=== PATIENT | female | born 1960 | race Caucasian/White ===

== ENCOUNTER → 2017-01-27 | Outpatient (REF) | payer OTHER ==
[~2017-01-27] MED LIST: ASACOL; NECON; THERGRAN; VITA500T; [UNRECOGNIZED DRUG - OTHER]
[2017-01-27 13:51] LABS: AMYLASE 58 U/L (25-115)
== END ==
LOC: M LAB REF 12:35
PROVIDERS: ATTEND Internal Medicine
DX: Z51.81 Encounter for therapeutic drug level monitoring (principal)

== ENCOUNTER → 2017-10-04 | Outpatient (REF) | payer OTHER | LOC: M LAB REF 15:13 | PROVIDERS: ATTEND Physician Assistant | DX: R30.0 Dysuria (principal) ==

== ENCOUNTER → 2018-02-09 | Outpatient (REF) | payer OTHER ==
[2018-02-09 13:04] LABS: VITAMIN B12 LEVEL 438 PG/ML
== END ==
LOC: M LAB REF 11:54
DX: R71.8 Other abnormality of red blood cells (principal)

== ENCOUNTER → 2018-09-18 | Outpatient (REF) | payer OTHER | LOC: M LAB REF 17:43 | DX: C50.912 Malignant neoplasm of unspecified site of left female breast (principal); D48.61 Neoplasm of uncertain behavior of right breast | CPT/HCPCS: 88305 ==

== ENCOUNTER → 2018-10-01 | Outpatient (CLI) | payer OTHER ==
[2018-10-01 12:27] LABS: BASO % 0.5 % (0.0-1.0); EOS # 0.1 10^3/uL (0.0-0.50); EOS % 1.7 % (0.0-3.0); HEMOGLOBIN 13.6 g/dl (12.0-15.5); IMMATURE GRANULOCYTE % 0.2 % (0-3.0); LYMPH # 0.9 10^3/uL (1.5-4.5); LYMPH % 21.4 % (24.0-44.0); MEAN CORPUSCULAR HEMOGLOBIN 32.1 pg (27.0-33.0); MEAN CORPUSCULAR VOLUME 94.3 fl (80.0-96.0); MONO # 0.3 10^3/uL (0.0-0.8); MONO % 7.9 % (0.0-5.0); NEUTROPHILS # 2.8 10^3/uL (1.8-7.7); NEUTROPHILS % 68.3 % (36.0-66.0); PLATELET COUNT, AUTOMATED 184 10^3/uL (150-450); RED BLOOD COUNT 4.24 10^6/uL (4.00-5.40); RED CELL DISTRIBUTION WIDTH 13.2 % (11.5-14.5); WHITE BLOOD COUNT 4.1 10^3/uL (4.0-10.0)
[2018-10-01 12:39] LABS: ALBUMIN 3.8 GM/DL (3.2-5.2); ALBUMIN/GLOBULIN RATIO 1.27 (1.00-1.93); ALKALINE PHOSPHATASE 90 U/L (45-117); ALT/SGPT 16 U/L (12-78); ANION GAP 7 MEQ/L (8-16); AST/SGOT 11 U/L (7-37); BILIRUBIN,TOTAL 0.4 MG/DL (0.2-1.0); BLOOD UREA NITROGEN 15 MG/DL (7-18); CALCIUM LEVEL 8.5 MG/DL (8.5-10.1); CARBON DIOXIDE LEVEL 28 MEQ/L (21-32); CHLORIDE LEVEL 107 MEQ/L (98-107); CREATININE FOR GFR 0.85 MG/DL (0.55-1.30); GLOMERULAR FILTRATION RATE > 60.0 (>51); GLUCOSE, FASTING 86 MG/DL (70-100); POTASSIUM SERUM 4.1 MEQ/L (3.5-5.1); SODIUM LEVEL 142 MEQ/L (136-145); TOTAL PROTEIN 6.8 GM/DL (6.4-8.2)
== END ==
LOC: M WUC 09:41
DX: Z01.818 Encounter for other preprocedural examination (principal); C50.912 Malignant neoplasm of unspecified site of left female breast
CPT/HCPCS: 80053

== ENCOUNTER → 2018-10-22 | Outpatient (CLI) | payer MEDICAID ==
[~2018-10-22] MED LIST changes: +DECA4TAB PO; +MESA800T PO; +NEXI1CAP4 PO; +ONDA4SOL PO; +XANA0.25 PO
--- NOTE | 2018-10-22 11:51 | REP ---
CHEST X-RAY: Two views. HISTORY: Preop exam. COMPARISON STUDY: December 23, 2008. FINDINGS: The lungs are well inflated and clear. The pleural angles are sharp. Heart size is normal. Pulmonary vasculature is not increased. No bony abnormalities seen. IMPRESSION: Negative chest x-ray. Electronically Signed by Abelardo Vera MD 10/22/2018 05:02 P
== END ==
LOC: M SMT 10:58
PROVIDERS: ATTEND Thoracic Surgery (Cardiothoracic Vascular Surgery)
DX: Z01.818 Encounter for other preprocedural examination (principal)

== ENCOUNTER → 2018-11-05 | Outpatient (CLI) | payer MEDICAID ==
[~2018-11-05] MED LIST changes: +CLAR10CA3 PO
--- NOTE | 2018-11-05 09:05 | REP ---
Chest two views HISTORY: There is carcinoma Comparison: 10/22/2018 The lungs are clear. The heart is normal in size. The pulmonary vasculature is normal in appearance. The bony structure is intact. An Hufiiv-E-Oyzq catheter is present. IMPRESSION: No acute disease. Electronically Signed by Papa Boss MD 11/05/2018 08:57 A
== END ==
LOC: M SMT 08:33
PROVIDERS: ATTEND Thoracic Surgery (Cardiothoracic Vascular Surgery)
DX: Z01.818 Encounter for other preprocedural examination (principal); C50.912 Malignant neoplasm of unspecified site of left female breast

== ENCOUNTER 2018-12-27 12:42 | Emergency (ER) | payer MEDICAID ==
[~2018-12-27] VITALS: Ht 162.6 cm; Wt 80.5 kg
[~2018-12-27 12:42] MED LIST changes: +LIDO2.5C15 TOP
[2018-12-27] MEDS ORDERED: ASAC800T3 (12:49)
[2018-12-27] MEDS ORDERED: ASPIRIN 81 MG CHEW TABLET PO ONE (14:30)
[2018-12-27] MEDS ORDERED: IPRATROPIUM 0.5MG/ALBUTEROL 2.5MG INH SOL UD 3ML (DUONEB)(J7620) NEB ONE (14:30)
[2018-12-27 14:32] LABS: HEMATOCRIT 33.5 % (36.0-47.0); HEMOGLOBIN 10.7 g/dl (12.0-15.5); MEAN CORPUSCULAR HEMOGLOBIN 31.2 pg (27.0-33.0); MEAN CORPUSCULAR HGB CONC 31.9 g/dl (32.0-36.5); MEAN CORPUSCULAR VOLUME 97.7 fl (80.0-96.0); PLATELET COUNT, AUTOMATED 143 10^3/uL (150-450); RED BLOOD COUNT 3.43 10^6/uL (4.00-5.40); VENOUS BASE EXCESS -1.8 (-2.0-2.0); VENOUS PARTIAL PRESSURE CO2 38.9 mmHg (38.0-50.0); VENOUS PARTIAL PRESSURE O2 55.9 mmHg (30.0-50.0); VENOUS PH 7.389 UNITS (7.330-7.430); VENOUS STANDARD HCO3 22.8 MEQ/L; VENOUS TOTAL CO2 24.2 MEQ/L (24.0-28.0); WHITE BLOOD COUNT 17.3 10^3/uL (4.0-10.0)
[2018-12-27 14:43] LABS: BLOOD UREA NITROGEN 12 MG/DL (7-18); CALCIUM LEVEL 7.9 MG/DL (8.5-10.1); CARBON DIOXIDE LEVEL 26 MEQ/L (21-32); CHLORIDE LEVEL 106 MEQ/L (98-107); CK-MB VALUE MASS < 1.0 NG/ML (<3.6); CPK CREATINE PHOSPHOKINASE 58 U/L (26-192); CREATININE FOR GFR 0.79 MG/DL (0.55-1.30); GLOMERULAR FILTRATION RATE > 60.0 (>51); GLUCOSE, FASTING 92 MG/DL (70-100); INR 0.96; MB/CK RELATIVE INDEX 1.72 (< OR =4); POTASSIUM SERUM 3.9 MEQ/L (3.5-5.1); PROTHROMBIN TIME 12.9 SECONDS (12.1-14.4); SODIUM LEVEL 141 MEQ/L (136-145); TROPONIN I < 0.02 NG/ML (< 0.10)
[2018-12-27 14:45] LABS: D-DIMER QUANT 472.07 ng/ml (<500)
--- NOTE | 2018-12-27 14:48 | REP ---
PA and lateral chest: Comparison is 11/05/2018. The lung miller are clear. The cardiac size is normal. The richard, mediastinum, and skeletal structures are unremarkable exit sent for [id number] on the right, unchanged. . Impression: Negative PA and lateral chest. There is no interval change Electronically Signed by Fran Faulkner MD 12/27/2018 02:39 P
[2018-12-27 15:35] LABS: INFLUENZA A AMPLIFICATION NEGATIVE (NEGATIVE); INFLUENZA B AMPLIFICATION NEGATIVE (NEGATIVE)
[2018-12-27 15:45] LABS: ATYPICAL LYMPH 4 % (0-5); BASOPHILS 4 % (0-4); EOSINOPHILS 1 % (0-5); LYMPHOCYTES 7 % (16-52); METAMYELOCYTES 1 % (0-0); MONOCYTES 2 % (0-8); NEUTROPHILS 74 % (35-75)
[2018-12-27] MEDS ORDERED: ISOVUE-370 76% 100ML VIAL (Q9967) As Ordered ONE (15:45)
[2018-12-27 15:46] LABS: ANISOCYTOSIS 1+; OVALOCYTES 1+; PLATELET ESTIMATE NORMAL (NORMAL); POIKILOCYTOSIS 1+; POLYCHROMASIA 1+; TOXIC GRANULATION 1+
--- NOTE | 2018-12-27 16:09 | REP ---
CT of the chest with IV contrast, CT pulmonary angiography: There are no emboli in the pulmonary trunk. There are no emboli in the pulmonary lobe or segment branches. There are no infiltrates. There are no pleural effusions. There are no masses or nodules. There is no mediastinal, hilar or axillary adenopathy. The thoracic aorta is unremarkable. Cardiac size is normal. The visualized upper abdominal contents are unremarkable. Impression: There are no pulmonary emboli. Otherwise, essentially negative CT study of the chest. Electronically Signed by Fran Faulknre MD 12/27/2018 04:00 P
[2018-12-27] MEDS ORDERED: MIDAZOLAM INJ 2 MG/2 ML VIAL (J2250) As Ordered ONE (17:26)
[2018-12-27 17:45] VITALS: BP 125/61
--- NOTE | 2018-12-27 21:11 | ECGEPIP ---
Stationary ECG Study [facility] - ED Test Date: 2018-12-27 Pat Name: BARBARA SPANN Department: Room: - Gender: F Pattern Drafter: precious : 1960 Requested By: NICOLETTE Blackwood PA-C Order Number: [id number] Reading MD: Viviana Logan Measurements Intervals Spring Rate: 89 P: 48 ME: 130 QRS: -8 QRSD: 75 T: 18 QT: 360 QTc: 440 Interpretive Statements SINUS RHYTHM POSSIBLE INFERIOR INFARCT NSTTW ABNORMALITY INCREASED RATE 10/22/18 Electronically Signed On 12-27-2018 21:11:25 EDT by Viviana Logan
== END 2018-12-27 17:52 | disposition home or self-care (01) ==
LOC: M ED 12:42
DX: R07.89 Other chest pain (principal); C50.919 Malignant neoplasm of unspecified site of unspecified female breast; Z88.2 Allergy status to sulfonamides; Z79.899 Other long term (current) drug therapy
CPT/HCPCS: 71046; 71275; 80048; 82550; 82553; 82803; 85025; 85379; 85610; 87502; 93005; 93041; 94640; 99285; Q9967

== ENCOUNTER → 2019-02-18 | Outpatient (CLI) | payer OTHER ==
[~2019-02-18] MED LIST changes: +ASAC800T3; +MERC50TA2 PO; -MESA800T PO; +MESA800T8 PO; +OXYC-517 PO
--- NOTE | 2019-02-20 08:57 | RADONC ---
RADIATION ONCOLOGY CONSULTATION NOTE DATE: 02/18/2019 CHART NUMBER: [id number] DIAGNOSIS: Left breast cancer. STAGE: T2, N0, M0, ER negative, NM negative, HER2 negative. Right breast cancer. STAGE: T1c, N0, M0l, grade 3, ER positive, NM negative, HER2 negative. ECOG PERFORMANCE STATUS: 0. CONSULTATION NOTE: Ms. Diaz is a very pleasant 58-year-old white female with the diagnosis of what appears to be post neoadjuvant chemotherapy stage T2N0M0, ER negative, NM negative, HER2 negative left-sided breast carcinoma involving the left upper outer quadrant as well as a right upper outer quadrant [id number], poorly differentiated invasive ductal carcinoma which was ER positive, NM negative and HER2 negative following neoadjuvant chemotherapy as well. She is now presenting status post her neoadjuvant chemotherapy consisting of doxy, Taxol and Cytoxan completed on 01/06/2019 followed by bilateral lumpectomies and bilateral sentinel node dissections on 01/27/2019 with a complete response in the right breast to chemotherapy with no residual invasive or in situ disease and two sentinel lymph nodes which were negative for malignancy. There was a good response in the left breast with one of the two tumors showing complete response and the second showing a partial response with residual measurement of 8 mm. Lymph nodes appeared to be negative although there was fibrosis and hemosiderin consistent with previously involved lymph nodes and showing treatment effect. No remaining viable cells were positive in the lymph node specimen. The patient is now presenting for discussion of external beam radiation therapy in attempt to increase the likelihood of achieving local regional control. PAST MEDICAL HISTORY: The patient's past medical history is positive for Crohn's disease. She has had a partial thyroidectomy in the past. She has had C-sections and a ovary removal. She has a history of endometriosis and fibroid tumor resection. ALLERGIES: The patient is allergic to SULFA DRUGS. SOCIAL HISTORY: The patient does not smoke cigarettes. She drinks alcohol socially. FAMILY HISTORY: The patient's family history is negative for breast cancer or other issues. REVIEW OF SYSTEMS: The patient's review of systems noncontributory. She denies nausea, vomiting, fevers, chills, night sweats, diplopia, headaches, anxiety or depression, anorexia, weight loss, visual disturbances, chest pain, urinary or bowel difficulties, bone pain, or neurological problems. PHYSICAL EXAMINATION: The patient is a well-developed, well-nourished, female in no acute distress. HEENT exam is normocephalic, atraumatic. Extraocular movements are intact. There is no palpable cervical, supraclavicular, infraclavicular, axillary, or inguinal lymphadenopathy present. Lungs are clear to auscultation and percussion. Heart has a regular rate and rhythm. Abdomen is benign with no hepatosplenomegaly, masses, or tenderness. Breast examination reveals no masses or discharge bilaterally. Skeletal examination reveals no tenderness to pressure or percussion of the bony skeleton. Extremities reveal no clubbing, cyanosis, or edema. Neurologic exam is grossly intact, as is the remainder of the physical examination. ASSESSMENT: I had a very lengthy discussion with this patient and we discussed her therapeutic options. She has presented with bilateral breast carcinomas and indeed had three separate malignancies including what appears to be some involvement of the axillary nodes. The axillary node dissection on the left was noted to show some fibrosis and hemosiderin and was thought to represent a treatment effects from a previously involved lymph node. The patient basically has two reasonable possibilities now and the choices are quite personal. 1. First we can offer the patient and she I believe she is a candidate for postoperative radiation therapy to her right breast as well as the left breast and left lymph node drainage site region. I believe she would do quite well with this and I have discussed in detail the potential benefits as well as possible acute and chronic sequelae of external beam radiation therapy. We discussed logistics of treatment planning, simulation and subsequent fractionated daily radiation treatment. We did discuss alternate fractionation schedules but in light of the fact that we will be treating the lymph node drainage sites on the left I believe it is safer to offer her a traditional fractionation scheme at least on the left breast and supraclavicular, axillary region. The patient's other alternative of course is bilateral mastectomies which she has discussed with Dr. Jean Paul MD. Either option should deliver increase chance of local control in this very pleasant woman. Clearly she would need close followup whichever decision she makes. I did discuss various techniques to make sure we reduce any radiation dose to her heart and did express some concern at the large areas to be treated. This is not extremely unusual that we need to treat both breasts and as mentioned above. She should be able to tolerate this treatment without difficulty. I asked her to think about her options after discussing the pluses and minuses of each. I have not scheduled the patient for simulation at this time and she will contact me with her decision on treatments. We will schedule her at that time if she so desires. ADDENDUM: Approximately an hour following consultation the patient contacted our office and let us know that she has made a decision and that she does wish to undergo radiation at this time. We therefore are scheduling her for simulation and radiation will follow. cc: Ananda Causey Jr, MD Sara McGee, MD Lori Medeiros, MD
== END ==
LOC: M ONCR 12:54
PROVIDERS: ATTEND Radiology Radiation Oncology
DX: C50.912 Malignant neoplasm of unspecified site of left female breast (principal); Z92.21 Personal history of antineoplastic chemotherapy

== ENCOUNTER → 2019-03-19 | Outpatient (RCR) | payer OTHER ==
[2019-02-25 10:54] LABS: HEMATOCRIT 35.9 % (36.0-47.0); HEMOGLOBIN 11.8 g/dl (12.0-15.5); LYMPH % 25.6 % (24.0-44.0); MEAN CORPUSCULAR HEMOGLOBIN 32.7 pg (27.0-33.0); MEAN CORPUSCULAR HGB CONC 32.9 g/dl (32.0-36.5); MEAN CORPUSCULAR VOLUME 99.4 fl (80.0-96.0); NEUTROPHILS % 66.1 % (36.0-66.0); RED BLOOD COUNT 3.61 10^6/uL (4.00-5.40); WHITE BLOOD COUNT 3.1 10^3/uL (4.0-10.0)
--- NOTE | 2019-02-25 16:30 | RADONC ---
RADIATION ONCOLOGY SIMULATION NOTE DATE: 02/25/2019 CHART NUMBER: [id number] SIMULATION NOTE: Ms. Diaz was taken to the CT scan for CT simulation of her bilateral breast field. CT was accomplished without difficulty or discomfort. Radiation treatment planning is underway and radiation treatments will begin subsequently. An immobilization device was created and will be used throughout the course of treatment. It was created without difficulty or discomfort. I was physically present throughout the course of CT simulation.
--- NOTE | 2019-03-17 09:11 | RADONC ---
RADIATION ONCOLOGY PROGRESS NOTE DATE: 03/16/2019 CHART NUMBER: [id number] PROGRESS NOTE : Ms. Diaz underwent port films today of her treatment miller including the right and left breast. Port films were accomplished without difficulty or discomfort. Radiation treatments are scheduled to begin tomorrow.
[~2019-03-19] MED LIST changes: +ANAS1TAB2 PO; +BIMA1SOL OP; +[UNRECOGNIZED DRUG - CODE] TP
== END ==
LOC: M ONCR 02-25 09:49
PROVIDERS: ATTEND Radiology Radiation Oncology
DX: C50.411 Malignant neoplasm of upper-outer quadrant of right female breast (principal); C50.412 Malignant neoplasm of upper-outer quadrant of left female breast

== ENCOUNTER → 2019-04-07 | Outpatient (REF) | payer OTHER ==
[2019-04-07 14:43] LABS: BILIRUBIN,DIRECT < 0.1 MG/DL (0.0-0.2); LIPASE 204 U/L (73-393)
== END ==
LOC: M LAB REF 13:10
PROVIDERS: ATTEND Internal Medicine
DX: Z51.81 Encounter for therapeutic drug level monitoring (principal)

== ENCOUNTER → 2019-04-15 | Outpatient (CLI) | payer OTHER ==
--- NOTE | 2019-04-21 14:24 | DEXA ---
AP SPINE L1 - L4 1.201 0.1 1.1 LT FEMUR TOTAL 1.079 0.6 1.4 LT NECK 1.010 -0.2 1.0 RT FEMUR TOTAL 1.053 0.4 1.2 RT NECK 0.948 -0.6 0.5 TOTAL BODY TOTAL OTHER COMMENTS: Normal bone densitometry of the spine and hips. FOLLOW-UP: Recommendation for the next bone density exam: 5 years. MATT
== END ==
LOC: M WHC 13:03
PROVIDERS: ATTEND Internal Medicine Hematology & Oncology
DX: C50.912 Malignant neoplasm of unspecified site of left female breast (principal); M81.0 Age-related osteoporosis without current pathological fracture

== ENCOUNTER 2019-04-16 09:20 | Outpatient (RCR) | payer OTHER ==
--- NOTE | 2019-03-22 13:37 | RADONC ---
RADIATION ONCOLOGY PROGRESS NOTE DATE: 03/22/2019 CHART #: [id number] Mrs. Diaz with a diagnosis of left breast cancer stage, T2N0M0, ER/HI and HER2/marialuisa negative is currently receiving local regional radiation therapy. She has had four treatments at a dose of 720 cGy of her proposed 4860 cGy. This will be followed by an additional 1200 cGy boost to the lumpectomy scar site. Thus far, treatments have been well tolerated as she denies any untoward side effects. REVIEW OF SYSTEMS: She denies nausea, vomiting, coughing, sputum production or hemoptysis. Her energy level is adequate. She is able to maintain most day-to-day activities without any alteration of her lifestyle. Skin irritation is denied. She has no complaints with regards to any intra-abdominal issues or neurologic problems. EXAMINATION FINDINGS: The skin within the irradiated volume looks normal. There is no erythema and certainly no focal desquamation. Lymphatics: No palpable peripheral lymphadenopathy is appreciated. The remainder of the physical examination is basically unchanged. IMPRESSION: Tolerating radiation reasonably well. PLAN: Treatments to continue.
--- NOTE | 2019-03-29 14:26 | RADONC ---
RADIATION ONCOLOGY DATE: 03/29/2019 CHART NUMBER: [id number] Ms. Diaz is presently at a dose of 1620 cGy to her bilateral breasts and is tolerating treatments quite well at this point with no complaints related to her radiation therapy. She is having no breast or bone pain. REVIEW OF SYSTEMS: The patient's review of systems is noncontributory. She denies nausea, vomiting, fevers, chills, night sweats, diplopia, headaches, anxiety or depression, anorexia, weight loss, visual disturbances, chest pain, urinary or bowel difficulties, bone pain, or neurological problems. PHYSICAL EXAMINATION: The patient's skin is in good condition with no evidence of radiation change present. There is no moist or dry desquamation. The remainder of her physical exam remains unchanged. Ms. Diaz is tolerating treatments quite well and radiation will continue as scheduled.
--- NOTE | 2019-04-06 07:28 | RADONC ---
RADIATION ONCOLOGY PROGRESS NOTE DATE: 04/05/2019 CHART #: [id number] Ms. Diaz is presently at a dose of 2520 cGy to her right and left breasts and is tolerating treatments quite well at this point with no complaints related to her radiation therapy. She is having no breast or bone pain. REVIEW OF SYSTEMS: The patient's review of systems is positive for swallowing discomfort but is otherwise noncontributory. Denies nausea, vomiting, fevers, chills, night sweats, diplopia, headaches, anxiety or depression, anorexia, weight loss, visual disturbances, chest pain, urinary or bowel difficulties, bone pain, or neurological problems. PHYSICAL EXAMINATION: The patient's skin is in good condition with no evidence of radiation change present. There is no moist or dry desquamation. The remainder of her physical exam remains unchanged. Ms. Diaz is tolerating her treatments quite well and radiation will continue as scheduled.
--- NOTE | 2019-04-13 10:42 | RADONC ---
RADIATION ONCOLOGY PROGRESS NOTE DATE OF SERVICE: 04/12/2019 CHART NUMBER [id number]. Mrs. Diaz with a diagnosis of bilateral breast CA is currently receiving local regional radiotherapy and she has achieved a dose to date of 3420 cGy of an anticipated 4860 cGy. Both the right and left breast will be boosted for an additional 12 primary site via an energetic electron beam. Thus far, the patient denies any major issues related to her disease or to her treatments. REVIEW OF SYSTEMS: She specifically denies any nausea, vomiting, coughing, sputum production or hemoptysis. Skin within the irradiated volume. Is itchy but she reports no focal areas of desquamation. Otherwise the patient denies any headaches, neurologic dysfunction. Her energy level is satisfactory and she is able to maintain most day-to-day activities without any alteration of her lifestyle. The remainder of the review of systems is unchanged. EXAMINATION FINDINGS: The skin within the irradiated volume shows a brisk erythematous blush without focal desquamation. No palpable peripheral lymphadenopathy is appreciated. The remainder of the physical examination is unchanged. IMPRESSION: Tolerating therapy well. PLAN: Treatments to continue.
[~2019-04-16 09:20] MED LIST changes: -BUPIVACAINE HCL 0.5% 10 ML VIAL As Ordered ONE; -LIDOCAINE 2% MDV 20 ML VIAL As Ordered ONE
== END 2019-04-18 ==
LOC: M ONCR 09:20
PROVIDERS: ATTEND Radiology Radiation Oncology
DX: C50.411 Malignant neoplasm of upper-outer quadrant of right female breast (principal); C50.412 Malignant neoplasm of upper-outer quadrant of left female breast

== ENCOUNTER → 2019-04-16 | Outpatient (CLI) | payer OTHER ==
[~2019-04-16] MED LIST changes: +BUPIVACAINE HCL 0.5% 10 ML VIAL As Ordered ONE; +LIDOCAINE 2% MDV 20 ML VIAL As Ordered ONE
--- NOTE | 2019-04-28 07:11 | REPIR ---
DATE OF PROCEDURE: 04/16/2019 ATTENDING SURGEON: Dr. Emily Earl EMBEDDED LINUX DEVELOPER: Babita Salvador and Anine Young PREOPERATIVE DIAGNOSIS: Breast cancer. POSTOPERATIVE DIAGNOSIS: Breast cancer. PROCEDURE: Right internal jugular vein tunneled central venous catheter with subcutaneous port removal. INDICATION: Patient is a 58-year-old female who underwent chemotherapy for breast cancer and no longer requires her Port-a-Cath. The patient will undergo removal. ANESTHESIA: Local with 20 mL of 2% lidocaine mixed with 0.5% Marcaine. FLUORO TIME: 0.1 minutes. CONTRAST: None. COMPLICATIONS: None. DRAINS: None. SPECIMENS: None. IMPLANTS: None. PROCEDURE: Patient was taken to the angiography suite, placed supine on the angiography room table and then prepped and draped in the standard surgical fashion. The skin and subcutaneous tissue overlying the port were anesthetized, an incision was made and the port was dissected free and removed. Hemostasis was obtained after which the incision was closed using #4-0 Monocryl in an inverted interrupted fashion. Steri-Strips and dressings were applied. The patient tolerated procedure well. All instrument, sponge, needle counts were correct at the end the case. There were no complications. Dr. Earl was present for and directed the entire case. The patient was transferred to holding area and subsequently discharged in stable condition.
== END ==
LOC: M IRPRO 06:55
PROVIDERS: ATTEND Internal Medicine Hematology & Oncology
DX: Z45.2 Encounter for adjustment and management of vascular access device (principal); C50.912 Malignant neoplasm of unspecified site of left female breast; K21.9 Gastro-esophageal reflux disease without esophagitis; F41.9 Anxiety disorder, unspecified

== ENCOUNTER → 2019-04-27 | Outpatient (REF) | payer OTHER ==
[2019-04-27 12:37] LABS: HEMATOCRIT 39.6 % (36.0-47.0); HEMOGLOBIN 13.5 g/dl (12.0-15.5); MEAN CORPUSCULAR HEMOGLOBIN 32.5 pg (27.0-33.0); MEAN CORPUSCULAR HGB CONC 34.1 g/dl (32.0-36.5); MEAN CORPUSCULAR VOLUME 95.4 fl (80.0-96.0); PLATELET COUNT, AUTOMATED 193 10^3/uL (150-450); RED BLOOD COUNT 4.15 10^6/uL (4.00-5.40); WHITE BLOOD COUNT 3.9 10^3/uL (4.0-10.0)
[2019-04-27 13:50] LABS: ALBUMIN 3.6 GM/DL (3.2-5.2); BILIRUBIN,DIRECT 0.1 MG/DL (0.0-0.2); BILIRUBIN,TOTAL 0.3 MG/DL (0.2-1.0); C REACTIVE PROTEIN QUANTITATIV 0.65 MG/DL (0.00-0.30); TOTAL PROTEIN 6.4 GM/DL (6.4-8.2)
== END ==
LOC: M LABDRAW1 12:07
PROVIDERS: ATTEND Internal Medicine
DX: K50.10 Crohn's disease of large intestine without complications (principal)

== ENCOUNTER 2019-05-04 09:39 | Outpatient (RCR) | payer OTHER ==
--- NOTE | 2019-04-19 12:19 | RADONC ---
RADIATION ONCOLOGY PROGRESS NOTE DATE: 04/19/2019 CHART #: [id number] Ms. Diaz with a diagnosis of bilateral breast carcinoma is currently receiving local regional radiotherapy to both breasts. Her current dose is 4320 cGy of an anticipated 4860 cGy. After the completion of 4860 cGy to both breasts, she will receive an additional 1200 cGy boost with a 16 MEV electron beam. Thus far, she has no specific complaints referable to her disease or to her treatments with the exception of skin redness. REVIEW OF SYSTEMS: She specifically denies any nausea, vomiting, coughing, sputum production or hemoptysis. The skin within the irradiated volume is itching and somewhat dry. She puts emollient on the skin as well as some topical creams. The remainder of the review of systems is unchanged. EXAMINATION FINDINGS: The skin within the irradiated area shows a brisk erythematous blush without focal desquamation. There is no palpable peripheral lymphadenopathy. The remainder of the physical examination is unchanged. IMPRESSION: Tolerating therapy reasonably well. PLAN: Treatments to continue. MTDD
--- NOTE | 2019-04-26 10:55 | RADONC ---
RADIATION ONCOLOGY PROGRESS NOTE: DATE: 04/26/2019 CHART NUMBER: [id number] Ms. Diaz is presently at a dose of 4860 cGy to her bilateral breasts and is tolerating treatments quite well at this point with no significant difficulties related to her radiation therapy. She is having some skin discomfort but no other problems. REVIEW OF SYSTEMS: The patient's review of systems is positive for some skin discomfort but is otherwise noncontributory. She denies nausea, vomiting, fevers, chills, night sweats, diplopia, headaches, anxiety or depression, anorexia, weight loss, visual disturbances, chest pain, urinary or bowel difficulties, bone pain, or neurological problems. PHYSICAL EXAMINATION: The patient's skin in good condition with no evidence of moist or dry desquamation. There is erythema and tanning present. The remainder of her physical exam remains unchanged. Ms. Diaz is tolerating treatments quite well and radiation will continue as scheduled.
--- NOTE | 2019-05-03 14:59 | RADONC ---
RADIATION ONCOLOGY PROGRESS NOTE DATE: 05/03/2019 CHART NUMBER: [id number] Ms. Diaz is presently at a dose of 5860 cGy to her bilateral primary sites and is tolerating treatments quite well at this point with no complaints related to her radiation therapy. She is having no skin pain or other problems. REVIEW OF SYSTEMS: The patient's review of systems is noncontributory. Denies nausea, vomiting, fevers, chills, night sweats, diplopia, headaches, anxiety or depression, anorexia, weight loss, visual disturbances, chest pain, urinary or bowel difficulties, bone pain, or neurological problems. PHYSICAL EXAMINATION The patient's skin is in good condition with no evidence of moist or dry desquamation. The remainder of her physical exam remains unchanged. Ms. Diaz is tolerating her treatments quite well and radiation will continue as scheduled.
--- NOTE | 2019-05-05 08:08 | RADONC ---
RADIATION ONCOLOGY TREATMENT SUMMARY: DATE: 05/04/2019 CHART NUMBER: [id number] DIAGNOSIS: Left breast cancer. STAGE: T2, N0, M0, ER negative, OH negative, HER2/marialuisa negative. DIAGNOSIS: Right breast cancer. STAGE: T1c, N0, M0, grade 3, ER positive, OH positive, HER2/marialuisa negative. ECOG PERFORMANCE STATUS: 0 Ms. Diaz is a very pleasant 58-year-old white female with the diagnosis of what appears to be post neoadjuvant chemotherapy stage T2 abdominal, ER negative, OH negative, HER2/marialuisa negative left-sided breast carcinoma involving the left upper outer quadrant as well as a right upper outer quadrant, T1c, N0, M0 poorly differentiated invasive ductal carcinoma which was ER positive, OH negative and HER2/marialuisa negative. This was also diagnosed following neoadjuvant chemotherapy. The patient presented to us status post her neoadjuvant chemotherapy consisting of doxy, Taxol and Cytoxan followed by bilateral lumpectomies and bilateral sentinel lymph node dissections. She had a complete response in the right breast to chemotherapy with no residual invasive or in situ disease and two sentinel lymph nodes which were negative for malignancy. There was a good response in the left breast with one of the two tumor showing complete response and the second showing partial response with a residual 8 mm lesion. Lymph nodes appear to be negative although there was fibrosis and hemosiderin consistent with previously involved lymph nodes showing treatment effect. No remaining visible cells were positive in the lymph node specimen. We treated the patient to her right breast for a total dose of 4860 cGy delivered in 27 fractions of 180 cGy each over 40 elapsed days from 03/17/2019 through 04/26/2019. The patient's right breast was treated on a linear accelerator utilizing a combination of 6X and 10 X photons utilizing 3D conformal technique with medial lateral tangential miller. Following completion of 4860 cGy to the entire right breast, the primary site was boosted for an additional 1200 cGy delivered in six fractions of 200 cGy each from 04/27/2019 through 05/04/2019. The patient's primary site was treated on a linear accelerator utilizing a 16 mEq electron beam prescribed to the 90% isodose line via en face technique. This brought the primary site to a total dose of 6060 cGy delivered in 33 fractions over 48 elapsed days from 03/17/2019 through 05/04/2019. In addition, we treated the patient's left breast for a dose of 4860 cGy delivered in 27 fractions of 180 cGy each from over 40 elapsed days from 03/17/2019 through 04/26/2019. The patient's left breast was treated on the linear accelerator utilizing a combination of 6X and 10X photons with a 3D conformal technique utilizing medial lateral tangential miller. Following completion of 4860 cGy of the entire left breast the primary site was boosted for an additional 1200 cGy delivered in six fractions of 200 cGy each from 04/27/2019 through 05/04/2019. The primary site boost was treated on a linear accelerator utilizing a 16 MEV electron beam prescribed to the 90% isodose line via an en face technique. This brought the primary site to a total dose of 6060 cGy delivered in 33 fractions over 40 elapsed days from 03/17/2019 through 05/04/2019. In addition, we treated the patient's lymph node drainage sites including the left supraclavicular and axillary regions for a dose of 4860 cGy delivered in 27 fractions of 180 cGy each over 40 elapsed days from 03/17/2019 through 04/26/2019. The patient's lymph node drainage sites were treated on the linear accelerator utilizing a combination of 6X and 15 X photons via 3D conformal technique with anterior oblique field and a PA field. Ms. Diaz tolerated her treatments quite well and was able to complete therapy as prescribed without interruption. The patient is scheduled see me again in 1 month for further followup. She will also continue to be followed by her other physicians as well. Thank you for allowing us to participate in the care of this very pleasant woman. If I could be of any further assistance or provide you with any information, please free to contact me anytime As always warm regards, cc: Ananda Causey Jr, MD Sara McGee, MD Lori Medeiros, MD
[2019-10-11] MEDS ORDERED: ANAS1TAB2 PO (13:01)
[2019-10-12] MEDS ORDERED: ANAS1TAB2 PO (14:22)
== END 2019-05-19 ==
LOC: M ONCR 09:39
PROVIDERS: ATTEND Radiology Radiation Oncology
DX: C50.411 Malignant neoplasm of upper-outer quadrant of right female breast (principal); C50.412 Malignant neoplasm of upper-outer quadrant of left female breast

== ENCOUNTER → 2019-05-26 | Outpatient (REF) | payer OTHER ==
[2019-05-26 13:19] LABS: THYROID STIMULATING HORMONE 1.93 uIU/ML (0.358-3.740); THYROXINE (T4) 8.4 UG/DL (4.5-12.0)
[2019-05-26 13:21] LABS: TOTAL T3 116.7 NG/DL (60.0-181.0)
== END ==
LOC: M LABDRAW1 12:12
PROVIDERS: ATTEND Ophthalmology
DX: Z13.29 Encounter for screening for other suspected endocrine disorder (principal)

== ENCOUNTER → 2019-06-09 | Outpatient (CLI) | payer OTHER ==
--- NOTE | 2019-06-11 15:01 | RADONC ---
RADIATION ONCOLOGY FOLLOWUP NOTE DATE: 06/09/2019 CHART NUMBER: [id number] DIAGNOSIS: Left breast cancer. STAGE: Stage T2, N0, M0, ER negative, AL negative, HER2/marialuisa negative. DIAGNOSIS: Right breast cancer. STAGE: Stage T1c, N0, M0, grade 3, ER positive, AL positive, HER2/marialuisa negative. ECOG PERFORMANCE STATUS: FOLLOWUP NOTE: Ms. Diaz is a very pleasant 58-year-old white female with the diagnosis of bilateral breast cancers who is presenting to us today for routine followup visit 1 month post completion of bilateral radiation therapy. The patient presents today reporting that she is doing quite well with no complaints at this time related to her radiation therapy or disease. She is having no breast or bone pain. The patient's review of systems is noncontributory. Denies nausea, vomiting, fevers, chills, night sweats, diplopia, headaches, anxiety or depression, anorexia, weight loss, visual disturbances, chest pain, urinary or bowel difficulties, bone pain, or neurological problems. PHYSICAL EXAMINATION The patient is a well-developed, well-nourished female in no acute distress. HEENT exam is normocephalic, atraumatic. Extraocular movements are intact. There is no palpable cervical, supraclavicular, infraclavicular, axillary, or inguinal lymphadenopathy present. Lungs are clear to auscultation and percussion. Heart has a regular rate and rhythm. Abdomen is benign with no hepatosplenomegaly, masses, or tenderness. Breast examination reveals no masses or discharge bilaterally. Skeletal examination reveals no tenderness to pressure or percussion of the bony skeleton. Extremities reveal no clubbing, cyanosis, or edema. Neurologic exam is grossly intact, as is the remainder of the physical examination. ASSESSMENT The patient is clinically TAJ at this time. I have scheduled her for a bilateral screening mammography in August and she will be seeing me after that in routine followup visit. In addition, the patient will continue her routine followup visits and management with her medical oncologist, Dr. Barbara Acosta, as well as her surgeon Dr. Soha Reaves. cc: Ananda Causey Jr, MD Sara McGee, MD Lori Medeiros, MD
== END ==
LOC: M ONCR 10:00
PROVIDERS: ATTEND Radiology Radiation Oncology
DX: C50.411 Malignant neoplasm of upper-outer quadrant of right female breast (principal); C50.412 Malignant neoplasm of upper-outer quadrant of left female breast

== ENCOUNTER → 2019-09-01 | Outpatient (CLI) | payer OTHER ==
--- NOTE | 2019-09-09 18:46 | REP ---
BILATERAL MAMMOGRAM WITH 3D tomosynthesis. COMPARISON: Multiple prior exams including most recent 01/19/2019. FAMILY HISTORY: Breast cancer at age 60 at maternal grandmother and breast cancer in sister at age 54. Personal history of bilateral breast cancer with bilateral surgery february 2019 with radiation and chemotherapy. Moderate heterogenous fibroglandular tissue is seen bilaterally. There is post-surgical and post-radiation change bilaterally. Post-surgical architectural distortion is seen in the region of the right axillary tail and also extensively in the lateral aspect of the left breast. There are multiple metallic clips in the posterior upper outer quadrant of the left breast. A metallic clip is seen in the visualized right axilla. The bilateral post surgical architectural distortion is expected, 6 months following bilateral surgery. No focal mass is seen bilaterally. No clustered microcalcifications are seen bilaterally. There is bilateral skin thickening diffusely compatible with post-radiation change. IMPRESSION: ACR 2 benign. Expected post-surgical architectural distortion in the right axillary tail region and in the outer left breast, as well as expected skin thickening from prior radiation therapy bilaterally. No focal mass or clustered microcalcifications. Recommend followup mammogram in one year. BIRADS 2: BI-RADS/ACR category 2 mammogram. Benign Findings. This mammogram was interpreted with the aid of an FDA-approved computer-aided detection system. The patient states she had a clinical breast exam in 06/2019. The patient letter being requested is M1. Electronically Signed by Fran Worley MD 09/10/2019 05:02 P
== END ==
LOC: M RAD 09:10
PROVIDERS: ATTEND Radiology Radiation Oncology
DX: Z12.31 Encounter for screening mammogram for malignant neoplasm of breast (principal); Z80.3 Family history of malignant neoplasm of breast; Z85.3 Personal history of malignant neoplasm of breast; Z92.21 Personal history of antineoplastic chemotherapy; Z92.3 Personal history of irradiation

== ENCOUNTER → 2019-09-29 | Outpatient (CLI) | payer OTHER ==
--- NOTE | 2019-09-29 12:28 | RADONC ---
RADIATION ONCOLOGY FOLLOWUP NOTE DATE: 09/29/2019 CHART #: [id number] DIAGNOSIS: Left breast cancer. STAGE: II, T2, N0, M0, ER negative, NE negative, HER2/marialuisa negative. DIAGNOSIS: Right breast cancer. STAGE: I A, T1c, N0, M0, grade 3, ER positive, NE positive, HER2/marialuisa negative. ECOG PERFORMANCE STATUS: 0. FOLLOWUP NOTE: Ms. Diaz is a very pleasant 58-year-old white female with the diagnosis of bilateral breast cancers who is presenting to us today for routine followup visit 5 months post completion of external beam radiation therapy. The patient presents today reporting that she is doing quite well with no complaints at this time related to her radiation therapy or disease. She has no breast or bone pain. REVIEW OF SYSTEMS: The patient's review of systems is noncontributory. Denies nausea, vomiting, fevers, chills, night sweats, diplopia, headaches, anxiety or depression, anorexia, weight loss, visual disturbances, chest pain, urinary or bowel difficulties, bone pain, or neurological problems. PHYSICAL EXAMINATION: The patient is a well-developed, well-nourished female in no acute distress. HEENT exam is normocephalic, atraumatic. Extraocular movements are intact. There is no palpable cervical, supraclavicular, infraclavicular, axillary, or inguinal lymphadenopathy present. Lungs are clear to auscultation and percussion. Heart has a regular rate and rhythm. Abdomen is benign with no hepatosplenomegaly, masses, or tenderness. Breast examination reveals no masses or discharge bilaterally. Skeletal examination reveals no tenderness to pressure or percussion of the bony skeleton. Extremities reveal no clubbing, cyanosis, or edema. Neurologic exam is grossly intact, as is the remainder of the physical examination. ASSESSMENT: The patient is clinically TAJ at this time. She is being followed and managed closely by Dr. Braga of medical oncology and undergoing hormonal treatments there. In addition, she is being seen by her other physicians and in light of my impending alf I am discharging her from our followup except on a p.r.n. basis. The patient has my cell phone number and office number if I could be of any assistance in the meantime. cc: MD Ananda Mayer Jr, MD Lori Medeiros, MD
== END ==
LOC: M ONCR 09:22
PROVIDERS: ATTEND Radiology Radiation Oncology
DX: Z85.3 Personal history of malignant neoplasm of breast (principal); Z92.3 Personal history of irradiation

== ENCOUNTER → 2019-12-24 | Outpatient (CLI) | payer OTHER ==
--- NOTE | 2019-12-24 13:18 | REPPI ---
CHEST, TWO VIEWS: There is no evidence of acute infiltrate. No pleural effusion is seen. The heart is normal in size. The mediastinal silhouette is unremarkable. The visualized osseous structures are intact. IMPRESSION: No acute pulmonary disease. Electronically Signed by Fran Worley MD 12/28/2019 03:48 P
== END ==
LOC: M PLAIMG 10:55
PROVIDERS: ATTEND Internal Medicine
DX: Z01.818 Encounter for other preprocedural examination (principal)

== ENCOUNTER 2020-01-06 06:13 | Day surgery (SDC) | payer OTHER ==
[~2020-01-06] VITALS: Ht 162.6 cm; Wt 78.0 kg
[2020-01-06] VITALS (9 sets, daily range): BP systolic 133–154; BP diastolic 69–78
[~2020-01-06 06:13] MED LIST changes: +LIDOCAINE 1% MDV 20ML VIAL SQ PRN; +LR 1,000 ML IV ONE; +ceFAZolin SOD 2 GM in IV 1 EA IV ONE
[2020-01-06 06:47] LABS: HEMATOCRIT 38.4 % (36.0-47.0); HEMOGLOBIN 13.2 g/dl (12.0-15.5); MEAN CORPUSCULAR HEMOGLOBIN 35.6 pg (27.0-33.0); MEAN CORPUSCULAR HGB CONC 34.4 g/dl (32.0-36.5); MEAN CORPUSCULAR VOLUME 103.5 fl (80.0-96.0); PLATELET COUNT, AUTOMATED 222 10^3/uL (150-450); RED BLOOD COUNT 3.71 10^6/uL (4.00-5.40); WHITE BLOOD COUNT 3.6 10^3/uL (4.0-10.0)
[2020-01-06] MEDS ORDERED: ROCURONIUM BROMIDE 50 MG/5 ML VIAL As Ordered ONE (07:19)
[2020-01-06] MEDS ORDERED: propofoL 200 MG/20 ML VIAL As Ordered ONE (07:19)
[2020-01-06] MEDS ORDERED: LIDOCAINE 2% INJ 100 MG/5 ML SDV (FOR ANES.) As Ordered ONE (07:19)
[2020-01-06] MEDS ORDERED: fentaNYL 250 MCG/5 ML INJECTION (J3010) As Ordered ONE (07:20)
[2020-01-06] MEDS ORDERED: MIDAZOLAM INJ 2 MG/2 ML VIAL (J2250) As Ordered ONE (07:21)
[2020-01-06] MEDS ORDERED: METOCLOPRAMIDE INJ 10MG/2ML VIAL (J2765) As Ordered ONE (08:14)
[2020-01-06] MEDS ORDERED: ONDANSETRON 4MG/2ML VIAL (J2405) As Ordered ONE ×2 (08:14→12:00)
[2020-01-06] MEDS ORDERED: ACETAMINOPHEN 1000MG 100ML IV BTL (OFIRMEV) (J0131 PER 10MG) As Ordered ONE (08:14)
[2020-01-06] MEDS ORDERED: KETOROLAC 60 MG/2 ML VIAL (J1885) As Ordered ONE (08:14)
[2020-01-06] MEDS ORDERED: dexameTHASONE 4 MG/ML 1ML VIAL (J1100) As Ordered ONE (08:14)
[2020-01-06] MEDS ORDERED: SUGAMMADEX SODIUM 500 MG/5 ML VIAL (BRIDION) As Ordered ONE (09:00)
[2020-01-06] MEDS ORDERED: OMEPRAZOLE 20 MG CAP PO SCH (09:00)
[2020-01-06] MEDS ORDERED: KETOROLAC 30 MG/ML VIAL (J1885) IV PRN (09:22)
[2020-01-06] MEDS ORDERED: MORPHINE 1MG/ML IN 0.9% NACL 100ML IV BAG As Ordered ONE (09:29)
[2020-01-06] MEDS ORDERED: fentaNYL 100 MCG/2 ML INJECTION (J3010) As Ordered ONE (09:29)
[2020-01-06] MEDS ORDERED: IBUPROFEN 600 MG TAB PO PRN (10:00)
[2020-01-06] MEDS ORDERED: diphenhydrAMINE INJ 50MG/ML VIAL (J1200) IV PRN (10:00)
[2020-01-06] MEDS ORDERED: NALOXONE INJ 0.4 MG/1 ML VIAL (J2310) IV PRN (10:00)
[2020-01-06] MEDS ORDERED: NS 1,000 ML IV SCH (10:00)
[2020-01-06] MEDS ORDERED: ONDANSETRON 4MG/2ML VIAL (J2405) IV PRN (10:00)
[2020-01-06] MEDS ORDERED: MORPHINE 2 MG/ML 1ML VIAL (J2270) IV PRN (10:00)
[2020-01-06] MEDS ORDERED: EPIDURAL/PCA KEYS XX PRN (10:00)
[2020-01-06] MEDS ORDERED: fentaNYL 100 MCG/2 ML INJECTION (J3010) IV PRN (10:00)
[2020-01-06] MEDS ORDERED: oxyCODONE 5MG TAB PO PRN (10:00)
[2020-01-06] MEDS ORDERED: LR 1,000 ML IV SCH (10:00)
[2020-01-06] MEDS ORDERED: MORPHINE 1MG/ML IN 0.9% NACL 100ML IV BAG IV PRN (10:00)
[2020-01-06] MEDS ORDERED: NALBUPHINE HCL 10 MG/ML AMP (J2300) IV PRN (10:00)
--- NOTE | 2020-01-06 11:37 | RO ---
DATE OF PROCEDURE: 01/06/2020 PREOPERATIVE DIAGNOSIS/INDICATION FOR SURGERY: Two previous primary breast cancers with increased endometrial and ovarian cancer risk. POSTOPERATIVE DIAGNOSIS: Two previous primary breast cancers with increased endometrial and ovarian cancer risk. PROCEDURE: RSO with biopsy of a right sided peritoneal lesion, which had a benign appearance but in this patient we went ahead and biopsied and took it out by way of biopsy and sent it as well separately. SURGEON: Yeimi Eaton MD CUE WORKER: None. ANESTHESIA: General endotracheal anesthesia (GETA). BRIEF DESCRIPTION OF PROCEDURE AND FINDINGS: Adriane was brought to the operating room where sufficient general endotracheal anesthesia was induced. She was prepped, draped and positioned in the usual sterile fashion. With a weighted speculum placed, the uterine manipulator placed, and Holliday with the ability to backfill placed, and attention was then turned to the abdomen where a transverse semilunar incision was made overlying her previous scarring from her previous surgeries. Sharp and blunt dissection were continued through the subcutaneous tissue to the level of the rectus fascia which was transversely incised, secured with sterile Vicryl retention suture and then the peritoneum was entered under direct visualization. The Graciela cannula was placed and secured in place with the #0 Vicryl retention sutures. CO2 insufflation was then begun. After adequate CO2 insufflation, the peritoneal surfaces were visualized. There were normal shiny peritoneal surfaces throughout initially with no excrescence, ascites or exudate initially noted. There were a cluster of three very tiny, you can see in the pictures, less than the size of the grasper, vesicular lesions on the bowel. These looked like scar tissue. The patient has had previous tubal, , but we went ahead and grabbed them with the grasper. We noted that they were on long stalks and it was fairly easy to take then off without any damage to the bowel and those were removed and sent for pathology. They were very tiny, but with her history peritoneal lesion of any question we did not want to ignore. I did not see anything else nor did I see anything in the pelvis, so it is not at all clear to me that this anything other than surgical scar tissue, but better safe than sorry. We then placed her in Trendelenburg, were able to see that the left tube and ovary had been essentially completely excised. There was a little sort of stump of tube at the ostia which went out with the excision, and the midportion of the right tube was also absent. The patient had previous tubal ligation, in fact there is green permanent suture still visible in the proximal aspect of the stump, but we went ahead and elevated the uterus and with the use of the uterine manipulator in Trendelenburg and manipulation of the bowel, we were able to access the infundibulopelvic ligament on that side and the distal tube and ovary, which were normal in appearance did not have any similar lesions to the little cluster that had already been excised. So we went ahead and used the #45 articulating ENSEAL dissector to carefully cauterize the infundibulopelvic ligament. We were careful to stay well away from the ovary and get a little bit more of that ligament, a little bit more of the round ligament than we usually do, so as to make sure we excised all that tissue. We carefully dissected through the infundibulopelvic and then the scar tissue of the pedicle and the round, and then worked our way back towards the uterus so that all of that tissue would go. With the dissection we backfilled the bladder as needed and there is definitely scar tissue of the bladder to the uterus from her previous sections, well I assume from her previous sections, but this is very much consistent with what was expected. After we freed the broad ligament superiorly on both sided and worked our way down to the uterines, we then used the cold scissors to dissect through some of that scar tissue to make the dissection easier from below. Following this, we went to the work vaginally. The instruments were removed from the abdomen, except of course the trocar, just the instruments, and attention was then turned to the vaginal portion of the case. Working vaginally, the uterine manipulator was removed. Anterior and posterior aspect of the cervix were grasped with single tooth tenaculum and a curved Emanuel was placed anteriorly and a weighted speculum placed. Then, a circumferential incision was made around the base of the cervix and the cardinal ligaments were isolated, clamped, transected and ligated using the Jolly clamps, which were used throughout this portion of the case, and #0 Vicryl suture was used throughout this portion of the case. We then clamped, transected and ligated the uterosacrals, marking them for later reattachment, and of course, opening the posterior peritoneal flap in order to allow placement of the long Jose F weighted retractor. We then carefully dissected anteriorly. She needed more sharp dissection than usual, but there was a clear line of demarcation with the scar tissue and we were able to then carefully clamp, transect and ligate the uterine vasculature until the uterus with the attached right ovary and tube could be delivered and each pedicle was carefully evaluated. Sponge and a stick was used to get better view and to move the bowel out of the way. We then closed the cuff using angle stitches and of course incorporating the uterosacrals, etc. A running locked stitch of #0 Vicryl was used for the final closure of the cuff itself and there was good hemostasis and approximation achieved. Attention was then turned back to the abdomen where the Graciela was removed. The #0 Vicryl sutures were used to close the fascial wound at the umbilicus and a #3-0 Vicryl subcuticular stitch was used to close the skin layer with good approximation and hemostasis again achieved at both layers and a dry sterile dressing was then applied. ESTIMATED BLOOD LOSS FOR PROCEDURE: About 50 mL. FLUID REPLACEMENT: Crystalloid. COMPLICATIONS: None. CONDITION AND DISPOSITION: Adriane tolerated the procedure well and was recovering in the recovery room in good condition.
[2020-01-06] MEDS: LR 1,000 ML IV SCH (18:33)
[2020-01-07 02:00] VITALS: BP 140/69
[2020-01-07] MEDS: LR 1,000 ML IV SCH (04:00)
[2020-01-07 06:00] VITALS: BP 136/70
[2020-01-07] MEDS ORDERED: NORCO, ANEXSIA 5/325MG TABLET (HYDROcodone/ACETAMINOPHEN) PO PRN (06:00)
[2020-01-07] MEDS ORDERED: NORC1TAB7 PO (08:12)
[2020-01-07] MEDS ORDERED: IBUP200C33 PO (08:12)
== END 2020-01-07 08:58 | disposition home or self-care (01) ==
LOC: M SDC 06:13 → M MS5PR 13:00 → M SDC 01-07 08:58
PROVIDERS: ATTEND Obstetrics & Gynecology
DX: N80.0 Endometriosis of uterus (principal); D25.9 Leiomyoma of uterus, unspecified; Z85.3 Personal history of malignant neoplasm of breast; Z92.21 Personal history of antineoplastic chemotherapy; Z92.3 Personal history of irradiation; K50.90 Crohn's disease, unspecified, without complications; Z79.899 Other long term (current) drug therapy; Z88.2 Allergy status to sulfonamides
CPT/HCPCS: 36415; 58571; 85027; 86850; 86900; 86901; 88305; 88307; J0131; J0690; J1100; J1885; J2250; J2405; J2765; J3010

== ENCOUNTER → 2020-02-22 | Outpatient (REF) | payer OTHER ==
[~2020-02-22] MED LIST changes: +IBUP200C33 PO; -LIDOCAINE 1% MDV 20ML VIAL SQ PRN; -LR 1,000 ML IV ONE; +NORC1TAB7 PO; -ceFAZolin SOD 2 GM in IV 1 EA IV ONE
== END ==
LOC: M LAB REF 16:10
PROVIDERS: ATTEND Registered Nurse
DX: N39.0 Urinary tract infection, site not specified (principal)

== ENCOUNTER → 2020-03-09 | Outpatient (REF) | payer OTHER ==
[~2020-03-09] MED LIST changes: +MULTTAB24 PO
[2020-03-09 15:04] LABS: BASO % 0.7 % (0.0-1.0); EOS % 1.3 % (0.0-3.0); HEMATOCRIT 36.4 % (36.0-47.0); HEMOGLOBIN 12.2 g/dl (12.0-15.5); LYMPH # 0.5 10^3/uL (1.5-5.0); LYMPH % 16.7 % (24.0-44.0); MEAN CORPUSCULAR HEMOGLOBIN 34.5 pg (27.0-33.0); MEAN CORPUSCULAR HGB CONC 33.5 g/dl (32.0-36.5); MEAN CORPUSCULAR VOLUME 102.8 fl (80.0-96.0); MONO # 0.2 10^3/uL (0.0-0.8); NEUTROPHILS # 2.3 10^3/uL (1.5-8.5); PLATELET COUNT, AUTOMATED 203 10^3/uL (150-450); RED BLOOD COUNT 3.54 10^6/uL (4.00-5.40)
== END ==
LOC: M PLALAB 14:31
PROVIDERS: ATTEND Internal Medicine Hematology & Oncology
DX: C50.919 Malignant neoplasm of unspecified site of unspecified female breast (principal)

== ENCOUNTER → 2020-05-24 | Outpatient (REF) | payer OTHER ==
[~2020-05-24] MED LIST changes: +VENL37.598 PO
[2020-06-22 22:41] LABS: BASO % 0.5 % (0.0-1.0); HEMATOCRIT 38.2 % (36.0-47.0); HEMOGLOBIN 12.9 g/dl (12.0-15.5); LYMPH # 0.5 10^3/uL (1.5-5.0); MEAN CORPUSCULAR HGB CONC 33.8 g/dl (32.0-36.5); MEAN CORPUSCULAR VOLUME 100.8 fl (80.0-96.0); MONO # 0.4 10^3/uL (0.0-0.8); NEUTROPHILS % 77.2 % (36.0-66.0); PLATELET COUNT, AUTOMATED 192 10^3/uL (150-450); RED BLOOD COUNT 3.79 10^6/uL (4.00-5.40); WHITE BLOOD COUNT 3.9 10^3/uL (4.0-10.0)
[2020-07-08 12:41] LABS: ALBUMIN 3.7 GM/DL (3.2-5.2); BILIRUBIN,DIRECT 0.1 MG/DL (0.0-0.2); BILIRUBIN,TOTAL 0.4 MG/DL (0.2-1.0); TOTAL PROTEIN 6.3 GM/DL (6.4-8.2)
== END ==
LOC: M PLALAB 08:26
PROVIDERS: ATTEND Nurse Practitioner Family
DX: K50.10 Crohn's disease of large intestine without complications (principal)

== ENCOUNTER → 2020-07-25 | Outpatient (REF) | payer OTHER ==
[2020-07-25 17:24] LABS: BASO % 0.4 % (0.0-1.0); EOS # 0.1 10^3/uL (0.0-0.5); EOS % 1.3 % (0.0-3.0); HEMATOCRIT 39.8 % (36.0-47.0); HEMOGLOBIN 13.2 g/dl (12.0-15.5); LYMPH # 0.5 10^3/uL (1.5-5.0); LYMPH % 11.6 % (24.0-44.0); MEAN CORPUSCULAR HEMOGLOBIN 33.7 pg (27.0-33.0); MEAN CORPUSCULAR HGB CONC 33.2 g/dl (32.0-36.5); MEAN CORPUSCULAR VOLUME 101.5 fl (80.0-96.0); MONO # 0.4 10^3/uL (0.0-0.8); MONO % 8.5 % (0.0-5.0); NEUTROPHILS # 3.5 10^3/uL (1.5-8.5); NEUTROPHILS % 77.8 % (36.0-66.0); PLATELET COUNT, AUTOMATED 222 10^3/uL (150-450); RED BLOOD COUNT 3.92 10^6/uL (4.00-5.40); WHITE BLOOD COUNT 4.5 10^3/uL (4.0-10.0)
== END ==
LOC: M LABDRWAD 16:26
PROVIDERS: ATTEND Nurse Practitioner Family
DX: K50.10 Crohn's disease of large intestine without complications (principal)

== ENCOUNTER → 2020-09-04 | Outpatient (CLI) | payer OTHER ==
--- NOTE | 2020-09-04 12:54 | REPMRS ---
Patient History The patient states she had a clinical breast exam in August 2020. Family history of breast cancer at age 60 in maternal grandmother, colorectal cancer at age 60 in paternal grandmother, breast cancer in sister, breast cancer at age 54 in sister. Chemotherapy. Radiation therapy of both breasts. Took hormonal contraceptives for 27 years. Taking tamoxifen for 3 months. 3D TOMOSYNTHESIS WAS PERFORMED. Volpara breast density c. Digital Woman Screen Mammo: September 04, 2020 - Exam #: [id number] Bilateral CC and MLO view(s) were taken. Technologist: Maria Esther Mcmahon, Technologist Prior study comparison: September 01, 2019, bilateral digital mammo screening bilat, performed at [facility]. September 19, 2016, digital woman screen mammo performed at [facility]. FINDINGS: The breast tissue is heterogeneously dense. This may lower the sensitivity of mammography. There has been no change in the appearance of the mammogram from the prior studies. There is a moderate amount of residual fibroglandular tissue which is fairly symmetric. There is no interval development of dominant mass, areas of architectural distortion, or clustered microcalcification typical of malignancy. Assessment: BI-RADS/ACR category 1 mammogram. Negative Mammogram. Recommendation Routine screening mammogram in 1 year (for women over age 40). This mammogram was interpreted with the aid of an FDA-approved computer-aided dectection system. Electronically Signed By: Fran Worley MD 09/04/20 [id number]
== END ==
LOC: M WHC 09:46
PROVIDERS: ATTEND Internal Medicine Medical Oncology
DX: Z12.31 Encounter for screening mammogram for malignant neoplasm of breast (principal); Z80.3 Family history of malignant neoplasm of breast; Z92.21 Personal history of antineoplastic chemotherapy; Z92.3 Personal history of irradiation; Z92.0 Personal history of contraception

== ENCOUNTER → 2020-09-21 | Outpatient (CLI) | payer OTHER ==
[2020-09-21 15:05] LABS: BASO % 0.4 % (0.0-1.0); EOS # 0.1 10^3/uL (0.0-0.5); EOS % 2.6 % (0.0-3.0); HEMATOCRIT 39.8 % (36.0-47.0); HEMOGLOBIN 13.3 g/dl (12.0-15.5); LYMPH # 0.5 10^3/uL (1.5-5.0); LYMPH % 17.2 % (24.0-44.0); MEAN CORPUSCULAR HGB CONC 33.4 g/dl (32.0-36.5); MEAN CORPUSCULAR VOLUME 101.8 fl (80.0-96.0); MONO # 0.3 10^3/uL (0.0-0.8); MONO % 9.5 % (0.0-5.0); NEUTROPHILS # 1.9 10^3/uL (1.5-8.5); NEUTROPHILS % 69.9 % (36.0-66.0); PLATELET COUNT, AUTOMATED 203 10^3/uL (150-450); RED BLOOD COUNT 3.91 10^6/uL (4.00-5.40); WHITE BLOOD COUNT 2.7 10^3/uL (4.0-10.0)
[2020-09-21 15:56] LABS: ERYTHROCYTE SEDIMENTATION RATE 14 mm/hr (0-30)
[2020-09-21 17:20] LABS: ALBUMIN 3.8 GM/DL (3.2-5.2); ALT/SGPT 36 U/L (12-78); BILIRUBIN,DIRECT 0.1 MG/DL (0.0-0.2); BILIRUBIN,TOTAL 0.4 MG/DL (0.2-1.0); BLOOD UREA NITROGEN 13 MG/DL (7-18); C REACTIVE PROTEIN QUANTITATIV 0.75 MG/DL (0.00-0.30); CALCIUM LEVEL 8.9 MG/DL (8.5-10.1); CARBON DIOXIDE LEVEL 30 MEQ/L (21-32); CHLORIDE LEVEL 109 MEQ/L (98-107); CREATININE FOR GFR 0.75 MG/DL (0.55-1.30); GLOMERULAR FILTRATION RATE > 60.0 (>51); GLUCOSE, FASTING 79 MG/DL (70-100); POTASSIUM SERUM 4.6 MEQ/L (3.5-5.1); SODIUM LEVEL 143 MEQ/L (136-145); TOTAL 25(OH) VITAMIN D 42.6 NG/ML (30.0-100.0); TOTAL PROTEIN 6.5 GM/DL (6.4-8.2); VITAMIN B12 LEVEL 439 PG/ML (247-911)
== END ==
LOC: M PLALAB 11:45
PROVIDERS: ATTEND Internal Medicine Gastroenterology
DX: K50.10 Crohn's disease of large intestine without complications (principal)

== ENCOUNTER → 2020-10-25 | Outpatient (CLI) | payer OTHER ==
[2020-10-25 13:05] LABS: BASO % 0.5 % (0.0-1.0); EOS # 0.1 10^3/uL (0.0-0.5); EOS % 1.4 % (0.0-3.0); HEMATOCRIT 39.9 % (36.0-47.0); HEMOGLOBIN 13.7 g/dl (12.0-15.5); LYMPH # 0.6 10^3/uL (1.5-5.0); LYMPH % 13.2 % (24.0-44.0); MEAN CORPUSCULAR HEMOGLOBIN 34.5 pg (27.0-33.0); MEAN CORPUSCULAR HGB CONC 34.3 g/dl (32.0-36.5); MEAN CORPUSCULAR VOLUME 100.5 fl (80.0-96.0); MONO # 0.4 10^3/uL (0.0-0.8); MONO % 8.6 % (0.0-5.0); NEUTROPHILS # 3.4 10^3/uL (1.5-8.5); NEUTROPHILS % 76.1 % (36.0-66.0); PLATELET COUNT, AUTOMATED 179 10^3/uL (150-450); RED BLOOD COUNT 3.97 10^6/uL (4.00-5.40); WHITE BLOOD COUNT 4.4 10^3/uL (4.0-10.0)
== END ==
LOC: M PLALAB 12:06
PROVIDERS: ATTEND Internal Medicine Gastroenterology
DX: K50.10 Crohn's disease of large intestine without complications (principal); K56.690 Other partial intestinal obstruction; D64.9 Anemia, unspecified

== ENCOUNTER → 2021-01-24 | Outpatient (CLI) | payer OTHER ==
[2021-01-24 15:39] LABS: BASO % 0.3 % (0.0-1.0); EOS # 0.1 10^3/uL (0.0-0.5); EOS % 3.1 % (0.0-3.0); HEMATOCRIT 38.4 % (36.0-47.0); HEMOGLOBIN 12.7 g/dl (12.0-15.5); LYMPH # 0.4 10^3/uL (1.5-5.0); LYMPH % 13.9 % (24.0-44.0); MEAN CORPUSCULAR HEMOGLOBIN 34.4 pg (27.0-33.0); MEAN CORPUSCULAR HGB CONC 33.1 g/dl (32.0-36.5); MEAN CORPUSCULAR VOLUME 104.1 fl (80.0-96.0); MONO # 0.3 10^3/uL (0.0-0.8); NEUTROPHILS # 2.1 10^3/uL (1.5-8.5); NEUTROPHILS % 73.4 % (36.0-66.0); PLATELET COUNT, AUTOMATED 206 10^3/uL (150-450); RED BLOOD COUNT 3.69 10^6/uL (4.00-5.40); WHITE BLOOD COUNT 2.9 10^3/uL (4.0-10.0)
[2021-01-24 16:29] LABS: ALBUMIN 3.7 GM/DL (3.2-5.2); ALT/SGPT 59 U/L (12-78); BILIRUBIN,DIRECT < 0.1 MG/DL (0.0-0.2); BILIRUBIN,TOTAL 0.4 MG/DL (0.2-1.0); C REACTIVE PROTEIN QUANTITATIV 0.62 MG/DL (0.00-0.30); LIPASE 161 U/L (73-393); TOTAL PROTEIN 6.3 GM/DL (6.4-8.2)
== END ==
LOC: M PLALAB 12:19
PROVIDERS: ATTEND Internal Medicine Gastroenterology
DX: Z51.81 Encounter for therapeutic drug level monitoring (principal); Z79.899 Other long term (current) drug therapy

== ENCOUNTER → 2021-02-16 | Outpatient (CLI) | payer OTHER ==
[~2021-02-16] MED LIST changes: +PROHANCE 279.3MG/ML 15ML VIAL As Ordered ONE
--- NOTE | 2021-02-16 11:42 | REP ---
INDICATION: DESIRAE MALIGNANT NEOPLASM OF BREAST IN FEMALE. History bilateral breast malignancy post conservative treatment. BRCA positive. COMPARISON: Comparison MRI study is from 16 February 2020. Comparison mammography 04 September 2020. Comparison is made with MR imaging from 08 October 2018. TECHNIQUE: Three Katie MRI imaging was performed with a dedicated breast coil. Axial, coronal, and sagittal T1 and T2 weighted scans were obtained with and without fat saturation in the usual fashion. The study includes dynamically acquired post gadolinium-enhanced imaging with image subtraction. Maximum intensity projection and multi planar reformation imaging is included as well. This study is interpreted with the aid of [employer], an FDA approved computer aided detection (CAD) software program, on a dedicated breast MRI workstation. The gadolinium enhancement dose is 14 mL of intravenous ProHance. FINDINGS: There is post treatment deformity of the left breast again noted with indentation anteriorly. Linear scarring is noted with a multiple metallic field susceptibility artifacts in the upper outer quadrant on the left corresponding the surgical clip seen mammographically. There is moderate fibroglandular tissue present bilaterally. These findings are unchanged. There is no evidence of axillary adenopathy or cystic change. There is metallic field susceptibility artifact and some fibrosis in the right upper outer quadrant extending into the axilla as well also unchanged.. Unfortunately, there is a new suspicious spiculated enhancing mass in the anterior 3rd of the right breast centrally on today's MRI study. This measures 14 x 7 by 8 mm. There is a peripheral pattern of contrast enhancement suggesting some central necrosis. There is a vague wrists initial enhancement and predominantly washout, type 3 kinetics on dynamic post-contrast images. This lesion is highly suspicious for recurrent right breast malignancy. There is no evidence of axillary or internal mammary lymphadenopathy on either side. No suspicious abnormality is noted in the left breast. IMPRESSION: BI-RADS category 5 highly suspicious right breast MRI findings. Spiculated enhancing new mass in the anterior 3rd of the right breast 14 mm in greatest diameter. Recommend right breast mammography and targeted right breast sonography. Histologic sampling is recommended. Hopefully this can be accomplished by ultrasound guidance. PET-CT could be considered. <Electronically signed by Lamine Vera > 02/16/21 [id number]
== END ==
LOC: M RAD 09:00
DX: C50.911 Malignant neoplasm of unspecified site of right female breast (principal); C50.912 Malignant neoplasm of unspecified site of left female breast
CPT/HCPCS: A9576; C8908

== ENCOUNTER → 2021-03-02 | Outpatient (CLI) | payer OTHER ==
[~2021-03-02] MED LIST changes: +LIDO1CRE42 TOP; -LIDO2.5C15 TOP; -PROHANCE 279.3MG/ML 15ML VIAL As Ordered ONE
== END ==
LOC: M LABSMTC 14:04
PROVIDERS: ATTEND Physician Assistant Surgical
DX: Z20.822 Contact with and (suspected) exposure to COVID-19 (principal)

== ENCOUNTER → 2021-04-03 | Outpatient (CLI) | payer OTHER ==
--- NOTE | 2021-04-04 14:17 | ECHO ---
ECHOCARDIOGRAM DATE OF PROCEDURE: 04/03/2021 Age: Gender: Height: 163 cm Weight: 74 kg REFERRING PHYSICIAN: Alessia Spence. INDICATION: Breast cancer, pre-chemotherapy. MEASUREMENTS: IVS 0.8 cm LV 4.5 cm LVPW 0.8 cm LA 2.7 cm Aorta 2.9 cm Left atrium volume index 19 ml/m2 Mitral E wave velocity 93 A wave 74 E prime septal 9.1 E prime lateral 11.4 FINDINGS: This study is of acceptable technical quality. The patient is in sinus rhythm. Left ventricle is normal size and overall has normal systolic function. Estimated LVEF around 60 to 65%, calculated LVEF 62%. Right ventricle is also normal size and systolic function. Both atria appear normal. Aortic valve is tricuspid. It is minimally sclerotic, but mobility is preserved. Mitral and tricuspid valves appear normal. Pulmonic valve was not well seen. No pericardial effusion is noted. Inferior vena cava was not well seen. Aortic root appears normal. Aortic arch and abdominal aorta were poorly visualized. Doppler interrogation reveals competent aortic valve. There is trace mitral and trace tricuspid insufficiency. Mitral inflow pattern and tissue Doppler imaging of mitral annulus revealed normal diastolic function. CONCLUSIONS: 1. Study is of acceptable technical quality, underlying sinus rhythm. 2. Normal LV size with normal LV systolic function, calculated LVEF 62%. Normal diastolic function. 3. Minimal aortic sclerosis but functionally no stenosis or insufficiency. 4. Trace mitral and tricuspid insufficiency. 5. Unable to estimate central venous pressure and pulmonary artery pressure.
== END ==
LOC: M CARPUL 09:27
PROVIDERS: ATTEND Internal Medicine Medical Oncology
DX: C50.411 Malignant neoplasm of upper-outer quadrant of right female breast (principal); Z79.899 Other long term (current) drug therapy

== ENCOUNTER → 2021-04-24 | Outpatient (POV) | payer OTHER ==
[~2021-04-24] VITALS: Ht 162.6 cm; Wt 75.0 kg
[2021-04-24 09:55] VITALS: BP 168/88
--- NOTE | 2021-04-26 14:20 | IRCOV ---
[facility] IR Consult Office Visit IR Consult Office Visit DATE: Apr 24, 2021 REASON FOR CONSULTATION/CHIEF COMPLAINT: Discuss long-term venous access. HISTORY OF PRESENT ILLNESS: 60-year-old female with bilateral breast cancer, status post bilateral mastectomy and bilateral axillary lymph node dissection, 5 weeks ago. She was treated by her surgeon Dr Soha Wright, at [facility]. 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 She is scheduled to undergo chemotherapy and is referred to me to discuss options for long-term venous access. She reports that she had a right chest port placed 2 years ago by another doctor, however she felt it was very uncomfortable. She only kept in for 4 months and then had it removed, because of discomfort. She also reports that the port stopped working. She describes a left-sided tunneled central venous catheter, which was placed 25 years ago and used for TPN. She is familiar with that catheter, she would flush it herself and administer her own TPN through it. She denies arm swelling. ALLERGIES: Please see below. HOME MEDICATIONS: Please see below. PAST MEDICAL HISTORY: Bilateral breast cancer Crohn's disease PAST SURGICAL HISTORY: Hysterectomy 4 Bilateral mastectomy Partial thyroidectomy oophorectomy Right-sided port Left-sided Moura catheter FAMILY HISTORY: Sister suffered with breast cancer. SOCIAL HISTORY: Nonsmoker. Denies alcohol or drugs. REVIEW OF SYSTEMS: Otherwise negative. PHYSICAL EXAMINATION: VITAL SIGNS: Please see below. GENERAL APPEARANCE: Appears well. Comfortable at rest. HEENT: No scleral icterus. RESPIRATORY: Normal breathing at rest. CARDIOVASCULAR: Normal rate. ABDOMEN: Soft nontender. EXTREMITIES: No arm lymphedema. No pedal edema. NEUROLOGICAL: Alert and oriented. PSYCHIATRIC: Appropriate to circumstance. LABORATORY DATA: 03/29/2021 hemoglobin 13.4 hematocrit 40.5 WBC 4.8 platelets 181 sodium 141 potassium 4.2 BUN 18 creatinine 0.73 GFR greater than 60 INR 0.88 Imaging: None pertinent. ASSESSMENT/PLAN: 60-year-old female with bilateral breast cancer, status post bilateral mastectomy, bilateral axillary node dissection and bilateral breast radiation, presents to discuss options for long-term venous access for chemotherapy. Patient has at least 12 weeks of chemotherapy scheduled if not longer. She is starting with peripheral IVs for chemotherapy. We discussed the risks of and benefits of port placement versus Moura catheter in the neck. We discussed the risks of lymphedema associated with her underlying surgeries and radiation treatment and any increased risk of lymphedema with IJ Moura or port placement. This is debated in the literature. We will seek her surgeon's opinion on this and then proceed with. port and/or Moura as patient sees best. I spent 30 minutes reviewing patient's records and in consultation with the patient. Thank you for this referral. Cc Dr. Spence. Oncology CC Dr. Soha Wright. [facility]. Surgery division. Allergies Coded Allergies: Sulfa (Sulfonamide Antibiotics) (Verified Allergy, Intermediate, rash, 12/23/19) Home Medications Scheduled Anastrozole (Anastrozole), 1 TAB PO DAILY Esomeprazole Magnesium (Nexium 24Hr), 20 MG PO DAILYPRN, (Reported) Mercaptopurine (Mercaptopurine), 50 MG PO BID, (Reported) Mesalamine (Mesalamine), 800 MG PO QID, (Reported) Mv,Calcium,Min/Iron/Folic/Vitk (Multi For Her Tablet), 1 TAB PO DAILY, (Reported) Venlafaxine HCl (Venlafaxine HCl ER), 1 CAP PO DAILY Scheduled PRN Alprazolam (Xanax), 0.25 MG PO DAILYPRN PRN for anxiety, (Reported) VS, I&O, 24H, Fishbone Vital Signs/I&O Vital Signs Date Time Temp Pulse Resp B/P (MAP) Pulse Ox O2 Delivery O2 Flow Rate FiO2 04/24/21 09:55 87.5 59 20 168/88 (114) 100 Room Air ALMA TENA MD Apr 26, 2021 14:20
== END ==
LOC: M IRPOV 09:23
PROVIDERS: ATTEND Radiology Diagnostic Radiology
DX: C50.911 Malignant neoplasm of unspecified site of right female breast (principal); C50.912 Malignant neoplasm of unspecified site of left female breast; K50.90 Crohn's disease, unspecified, without complications; Z80.3 Family history of malignant neoplasm of breast; Z90.11 Acquired absence of right breast and nipple; Z90.12 Acquired absence of left breast and nipple; Z90.710 Acquired absence of both cervix and uterus; Z92.3 Personal history of irradiation

== ENCOUNTER → 2021-04-24 | Outpatient (CLI) | payer OTHER ==
[~2021-04-24] MED LIST changes: +HYDR12.55 PO; +ONDA4TAB6 PO; +SENO8.6T10 PO
--- NOTE | 2021-04-24 09:40 | DEXAMM ---
INDICATION: LT BREAST CA,ON AI. COMPARISON: Comparison study March05/08/2019.. TECHNIQUE: Bone density was measured using dual-energy x-ray absorptionmetry (DEXA). FINDINGS: AP SPINE L1-L4 BMD 1.194 g/cm2 Young Adult T-Score 0.0 Age Matched Z-Score 1.2. LT FEMUR, TOTAL BMD 1.056 g/cm2 Young Adult T-Score 0.4 Age Matched Z-Score 1.3. LT NECK BMD 0.932 g/cm2 Young Adult T-Score -0.8 Age Matched Z-Score 0.5. RT FEMUR, TOTAL BMD 1.003 g/cm2 Young Adult T-Score 0.0 Age Matched Z-Score 0.9. RT NECK BMD 0.911 g/cm2 Young Adult T-Score -0.9 Age Matched Z-Score 0.3. IMPRESSION: There is normal bone density of the spine. There is normal bone density of the left hip. There is normal bone density of the right hip. The density of the spine has decreased 0.6% since the initial exam on April 15, 2019. The density of the left hip has decreased 2.1% since initial exam on April 15, 2019. The density of the right hip has decreased 4.7% since the initial exam on April 15, 2019. FOLLOW-UP: Recommendation for the next bone density exam: 5 years. <Electronically signed by Lamine Vera > 04/24/21 [id number]
== END ==
LOC: M WHC 07:56
PROVIDERS: ATTEND Internal Medicine Medical Oncology
DX: C50.912 Malignant neoplasm of unspecified site of left female breast (principal); Z79.899 Other long term (current) drug therapy

== ENCOUNTER → 2021-06-12 | Outpatient (CLI) | payer OTHER ==
[~2021-06-12] MED LIST changes: +PROHANCE 279.3MG/ML 15ML VIAL As Ordered ONE
--- NOTE | 2021-06-12 08:54 | REPVR ---
PROCEDURE INFORMATION: Exam: MR Head Without and With Contrast Exam date and time: 06/12/2021 8:46 AM Age: 60 years old Clinical indication: Pain; Headache not specified; Additional info: Headaches TECHNIQUE: Imaging protocol: MR of the head without and with intravenous contrast. Contrast material: PROHANCE; Contrast volume: 15 ml; Contrast route: INTRAVENOUS (IV); COMPARISON: No relevant prior studies available. FINDINGS: Brain: There is no extra-axial collection or intra-axial mass. Mild diffuse volume loss is within the range of normal for patient age. Normal parenchymal signal is preserved. There is no diffusion restriction. There is no abnormal enhancement within the brain. Cerebral ventricles: Normal. No ventriculomegaly. Bones/joints: Unremarkable. Paranasal sinuses: Normal as visualized. No acute sinusitis. Mastoid air cells: There is focal fluid within left inferior mastoid air cells. Orbital cavity: Unremarkable. Soft tissues: Unremarkable. IMPRESSION: No acute findings. Electronically signed by: Jeni Drew On 06/12/2021 08:54:14 AM
== END ==
LOC: M RAD 07:36
PROVIDERS: ATTEND Internal Medicine Medical Oncology
DX: C50.411 Malignant neoplasm of upper-outer quadrant of right female breast (principal); C50.412 Malignant neoplasm of upper-outer quadrant of left female breast
CPT/HCPCS: 70553; A9576

== ENCOUNTER → 2021-06-14 | Outpatient (REF) | payer OTHER, BC ==
[~2021-06-14] MED LIST changes: -PROHANCE 279.3MG/ML 15ML VIAL As Ordered ONE
== END ==
LOC: M LAB REF 13:56
PROVIDERS: ATTEND Physician Assistant
DX: C44.519 Basal cell carcinoma of skin of other part of trunk (principal)

== ENCOUNTER → 2021-07-04 | Outpatient (CLI) | payer OTHER ==
--- NOTE | 2021-07-06 10:00 | ECHO ---
ECHOCARDIOGRAM DATE OF PROCEDURE: 07/04/2021 Age: 60 Gender: Female Height: 64 inches Weight: 173 pounds REFERRING PHYSICIAN: Dr. Alessia Spence INDICATION: Chemotherapy drugs that may affect the heart. 2D MEASUREMENTS: Aortic root 2.7 cm Ventricular septum 1.16 cm Posterior wall 1.07 cm Left ventricle diastole 3.7 cm Left atrium 3.4 cm Left atrial volume index 27 Inferior vena cava 1.7 cm with more than 50% respiratory variation DOPPLER MEASUREMENTS: No aortic regurgitation. Very mild mitral regurgitation No mitral stenosis. Very mild tricuspid regurgitation No pulmonic regurgitation Mitral E velocity 101 cm/s Mitral A velocity 91.8 cm/s Mitral deceleration time 190 msec Pulmonary artery systolic pressure 14 mmHg MITRAL ANNULAR TISSUE DOPPLER E prime septal 9.2 cm/s, E prime lateral 15.3 cm/s DESCRIPTION: Rhythm was sinus. Image quality was fair. This was a 2D, M-mode, color flow Doppler, and pulse wave Doppler examination including mitral annular tissue Doppler. CONCLUSIONS: 1. Normal echocardiogram Doppler. 2. Normal left ventricle internal dimensions and wall thickness. Normal regional LV wall motion and wall thickening. Normal LV systolic function. LVEF 65 to 70% by visual estimate. Normal LV diastolic function. 3. No pericardial effusion.
== END ==
LOC: M CARPUL 10:38
PROVIDERS: ATTEND Internal Medicine Medical Oncology
DX: C50.411 Malignant neoplasm of upper-outer quadrant of right female breast (principal)

== ENCOUNTER → 2021-08-15 | Outpatient (REF) | payer OTHER ==
[~2021-08-15] MED LIST changes: +MAGN1CAP PO; +SELENIUM PO; +VIT C PO; +VIT D3 PO
== END ==
LOC: M LAB REF 11:12
PROVIDERS: ATTEND Nurse Practitioner Adult Health
DX: R06.02 Shortness of breath (principal)

== ENCOUNTER → 2021-08-17 | Outpatient (CLI) | payer OTHER ==
[~2021-08-17] MED LIST changes: +ISOVUE-370 76% 100ML VIAL As Ordered ONE
--- NOTE | 2021-08-17 14:11 | REP ---
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 COMPARISON: CT angio chest, 12/27/2018. TECHNIQUE: Imaging protocol: CT angiography of the chest with IV contrast. Contiguous 3 mm thick axial projection images were obtained through the chest. 2D sagittal and coronal reconstructions were performed. Radiation optimization: All CT scans at this facility use at least one of these dose optimization techniques: automated exposure control; mA and/or kV adjustment per patient size (includes targeted exams where dose is matched to clinical indication); or iterative reconstruction. Contrast: 75 cc Isovue 370 intravenous FINDINGS: Lower neck: Status post left hemithyroidectomy. There is no supraclavicular lymphadenopathy. Mediastinum: No abnormal masses or lymphadenopathy. Heart/thoracic aorta/pulmonary arterial tree: The heart size is normal. There is no pericardial effusion. There is calcific vascular disease of the thoracic aorta. There is no evidence of thoracic aortic aneurysm or thoracic aortic dissection. There are no filling defects in the pulmonary arterial tree. Upper abdomen: The visualized portion of the upper abdomen appears unremarkable. Thoracic esophagus: Normal. Chest wall and axilla: Status post bilateral mastectomy. There is no axillary lymphadenopathy. There is mild dextroscoliosis of the thoracolumbar spine. There are benign bone islands and T8-T9 Lung parenchyma: There is stable pleural-parenchymal scarring in the left lung apex. There is a stable 4 x 4 mm peripheral, ground-glass opacity nodule in the apicoposterior segment of the upper lobe of the left lung. There are no new pulmonary nodules. There is no significant interstitial or alveolar lung disease. There are no pleural effusions. IMPRESSION: 1. No evidence of pulmonary emboli. 2. There is calcific vascular disease of the thoracic aorta. The thoracic aorta is otherwise unremarkable. 3. Stable nodule in the upper lobe of the left lung. 4. There are no new pulmonary nodules. 5. There is no significant lung disease. 6. Status post bilateral mastectomy. 7. Other findings as noted. <Electronically signed by Johnnie Dacosta > 08/17/21 [id number]
== END ==
LOC: M RAD 13:13
PROVIDERS: ATTEND Nurse Practitioner Adult Health
DX: R06.02 Shortness of breath (principal)
CPT/HCPCS: 71275; Q9967

== ENCOUNTER → 2021-09-18 | Outpatient (CLI) | payer OTHER ==
[~2021-09-18] MED LIST changes: +D31000TA2 PO; -ISOVUE-370 76% 100ML VIAL As Ordered ONE; +SELE200T10 PO; +VITA100065 PO
== END ==
LOC: M RAD 10:59
PROVIDERS: ATTEND Internal Medicine Medical Oncology
DX: R22.2 Localized swelling, mass and lump, trunk (principal); Z85.3 Personal history of malignant neoplasm of breast; Z90.12 Acquired absence of left breast and nipple

== ENCOUNTER → 2021-10-01 | Outpatient (CLI) | payer OTHER | LOC: M CARPUL 07:21 | PROVIDERS: ATTEND Internal Medicine Medical Oncology | DX: Z01.818 Encounter for other preprocedural examination (principal); C50.411 Malignant neoplasm of upper-outer quadrant of right female breast ==

== ENCOUNTER → 2021-10-04 | Outpatient (REF) | payer OTHER | LOC: M LAB REF 10:59 | PROVIDERS: ATTEND Physician Assistant Medical | DX: R19.7 Diarrhea, unspecified (principal) ==

== ENCOUNTER → 2021-10-05 | Outpatient (REF) | payer OTHER | LOC: M LAB REF 09:54 | PROVIDERS: ATTEND Physician Assistant Surgical | DX: K50.10 Crohn's disease of large intestine without complications (principal); R19.7 Diarrhea, unspecified ==

== ENCOUNTER → 2021-11-16 | Outpatient (REF) | payer OTHER ==
[2021-11-16 17:50] LABS: PERCENT SATURATION 41.7 % (13.2-45.0)
[2021-11-16 17:57] LABS: TOTAL 25(OH) VITAMIN D 92.9 NG/ML (30.0-100.0)
== END ==
LOC: M LAB REF 16:37
PROVIDERS: ATTEND Nurse Practitioner Adult Health
DX: K50.10 Crohn's disease of large intestine without complications (principal)

== ENCOUNTER → 2021-12-05 | Outpatient (CLI) | payer OTHER ==
[~2021-12-05] MED LIST changes: -D31000TA2 PO; +PROHANCE 279.3MG/ML 15ML VIAL ONE; +VITA100093 PO
== END ==
LOC: M PLAIMG 12:51
PROVIDERS: ATTEND Internal Medicine Medical Oncology
DX: Z85.3 Personal history of malignant neoplasm of breast (principal); Z15.01 Genetic susceptibility to malignant neoplasm of breast
CPT/HCPCS: 74183; A9576

== ENCOUNTER → 2021-12-27 | Outpatient (CLI) | payer OTHER ==
[~2021-12-27] MED LIST changes: -PROHANCE 279.3MG/ML 15ML VIAL ONE
== END ==
LOC: M CARPUL 12:15
PROVIDERS: ATTEND Internal Medicine Medical Oncology
DX: Z01.810 Encounter for preprocedural cardiovascular examination (principal); C50.411 Malignant neoplasm of upper-outer quadrant of right female breast

== ENCOUNTER → 2022-04-01 | Outpatient (CLI) | payer OTHER ==
[~2022-04-01] MED LIST changes: +MAGN500T12 PO
== END ==
LOC: M CARPUL 09:40
PROVIDERS: ATTEND Internal Medicine Medical Oncology
DX: C50.411 Malignant neoplasm of upper-outer quadrant of right female breast (principal); Z79.899 Other long term (current) drug therapy; I35.1 Nonrheumatic aortic (valve) insufficiency

== ENCOUNTER → 2022-06-25 | Outpatient (CLI) | payer OTHER ==
[~2022-06-25] MED LIST changes: +BIMA0.036 OP; -BIMA1SOL OP
== END ==
LOC: M CARPUL 09:26
PROVIDERS: ATTEND Internal Medicine Medical Oncology
DX: I42.7 Cardiomyopathy due to drug and external agent (principal)

== ENCOUNTER → 2022-09-09 | Outpatient (CLI) | payer OTHER ==
[2022-09-09 13:55] LABS: BASO % 0.2 % (0.0-1.0); EOS # 0.2 10^3/uL (0.0-0.5); EOS % 3.3 % (0.0-3.0); HEMATOCRIT 40.4 % (36.0-47.0); HEMOGLOBIN 13.3 g/dl (12.0-15.5); LYMPH % 21.8 % (24.0-44.0); MEAN CORPUSCULAR HGB CONC 32.9 g/dl (32.0-36.5); MEAN CORPUSCULAR VOLUME 94.2 fl (80.0-96.0); MONO # 0.6 10^3/uL (0.0-0.8); MONO % 12.7 % (2.0-8.0); NEUTROPHILS # 2.8 10^3/uL (1.5-8.5); PLATELET COUNT, AUTOMATED 191 10^3/uL (150-450); RED BLOOD COUNT 4.29 10^6/uL (4.00-5.40); WHITE BLOOD COUNT 4.5 10^3/uL (4.0-10.0)
[2022-09-09 14:43] LABS: ALBUMIN 3.7 G/DL (3.2-5.2); ALT/SGPT 23 U/L (7.0-40); BILIRUBIN,DIRECT < 0.1 MG/DL (<0.4); BILIRUBIN,TOTAL 0.2 MG/DL (0.3-1.2); BLOOD UREA NITROGEN 13 MG/DL (9-23); CALCIUM LEVEL 8.5 MG/DL (8.3-10.6); CARBON DIOXIDE LEVEL 28 MMOL/L (20-31); CHLORIDE LEVEL 106 MMOL/L (98-107); CREATININE FOR GFR 0.76 MG/DL (0.55-1.30); GLOMERULAR FILTRATION RATE > 60.0 (>45); GLUCOSE, FASTING 98 MG/DL (74-106); POTASSIUM SERUM 4.5 MMOL/L (3.5-5.1); SODIUM LEVEL 142 MMOL/L (136-145); THYROID STIMULATING HORMONE 0.328 uIU/ML (0.55-4.78); TOTAL PROTEIN 6.1 G/DL (5.7-8.2)
== END ==
LOC: M PLALAB 11:47
PROVIDERS: ATTEND Internal Medicine Gastroenterology
DX: K50.10 Crohn's disease of large intestine without complications (principal)

== ENCOUNTER → 2022-11-21 | Outpatient (REF) | payer OTHER | LOC: M PLALAB 14:15 | PROVIDERS: ATTEND Nurse Practitioner Family | DX: Z12.4 Encounter for screening for malignant neoplasm of cervix (principal) ==

== ENCOUNTER → 2022-11-26 | Outpatient (CLI) | payer OTHER | LOC: M WHC 09:31 | PROVIDERS: ATTEND Physician Assistant Surgical | DX: R22.1 Localized swelling, mass and lump, neck (principal); Z90.13 Acquired absence of bilateral breasts and nipples; Z85.3 Personal history of malignant neoplasm of breast ==

== ENCOUNTER → 2023-01-30 | Outpatient (CLI) | payer OTHER ==
[2023-01-30 14:38] LABS: BASO % 0.7 % (0.0-1.0); EOS # 0.1 10^3/uL (0.0-0.5); EOS % 2.6 % (0.0-3.0); HEMATOCRIT 37.8 % (36.0-47.0); HEMOGLOBIN 12.5 g/dl (12.0-15.5); LYMPH # 1.3 10^3/uL (1.5-5.0); MEAN CORPUSCULAR HEMOGLOBIN 31.3 pg (27.0-33.0); MEAN CORPUSCULAR HGB CONC 33.1 g/dl (32.0-36.5); MEAN CORPUSCULAR VOLUME 94.7 fl (80.0-96.0); MONO # 0.4 10^3/uL (0.0-0.8); MONO % 7.9 % (2.0-8.0); NEUTROPHILS # 2.7 10^3/uL (1.5-8.5); NEUTROPHILS % 59.4 % (36.0-66.0); PLATELET COUNT, AUTOMATED 200 10^3/uL (150-450); RED BLOOD COUNT 3.99 10^6/uL (4.00-5.40); WHITE BLOOD COUNT 4.6 10^3/uL (4.0-10.0)
[2023-01-30 15:07] LABS: ALBUMIN 3.4 G/DL (3.2-5.2); ALKALINE PHOSPHATASE 63 U/L (46-116); ALT/SGPT 25 U/L (7.0-40); AST/SGOT 17 U/L (<34); BILIRUBIN,TOTAL 0.3 MG/DL (0.3-1.2); BLOOD UREA NITROGEN 15 MG/DL (9-23); CALCIUM LEVEL 8.5 MG/DL (8.3-10.6); CARBON DIOXIDE LEVEL 29 MMOL/L (20-31); CHLORIDE LEVEL 109 MMOL/L (98-107); CREATININE FOR GFR 0.67 MG/DL (0.55-1.30); GLOMERULAR FILTRATION RATE > 60.0 (>45); GLUCOSE, FASTING 87 MG/DL (74-106); POTASSIUM SERUM 4.2 MMOL/L (3.5-5.1); SODIUM LEVEL 143 MMOL/L (136-145); TOTAL PROTEIN 5.7 G/DL (5.7-8.2)
== END ==
LOC: M PLALAB 10:54
PROVIDERS: ATTEND Internal Medicine Medical Oncology
DX: C50.919 Malignant neoplasm of unspecified site of unspecified female breast (principal)

== ENCOUNTER → 2023-02-04 | Outpatient (CLI) | payer OTHER ==
[~2023-02-04] MED LIST changes: +PROHANCE 279.3MG/ML 15ML VIAL As Ordered ONE
== END ==
LOC: M RAD 08:55
PROVIDERS: ATTEND Internal Medicine Medical Oncology
DX: C50.919 Malignant neoplasm of unspecified site of unspecified female breast (principal); K76.0 Fatty (change of) liver, not elsewhere classified
CPT/HCPCS: 74183; A9576

== ENCOUNTER → 2023-02-20 | Outpatient (CLI) | payer OTHER ==
[~2023-02-20] MED LIST changes: -PROHANCE 279.3MG/ML 15ML VIAL As Ordered ONE
== END ==
LOC: M RAD 10:54
PROVIDERS: ATTEND Internal Medicine Medical Oncology
DX: R10.30 Lower abdominal pain, unspecified (principal); R14.0 Abdominal distension (gaseous)

== ENCOUNTER → 2023-04-08 | Outpatient (REF) | payer OTHER | LOC: M SFHCDERM 18:20 | PROVIDERS: ATTEND Nurse Practitioner Family | DX: D42.9 Neoplasm of uncertain behavior of meninges, unspecified (principal) ==

== ENCOUNTER → 2023-04-25 | Outpatient (CLI) | payer OTHER | LOC: M WHC 09:07 | PROVIDERS: ATTEND Internal Medicine Medical Oncology | DX: M85.80 Other specified disorders of bone density and structure, unspecified site (principal) ==

== ENCOUNTER → 2023-10-07 | Outpatient (REF) | payer OTHER ==
[~2023-10-07] MED LIST changes: -LIDO1CRE42 TOP; +LIDO30CR18 TOP
== END ==
LOC: M SFHCDERM 17:38
PROVIDERS: ATTEND Physician Assistant
DX: C44.601 Unspecified malignant neoplasm of skin of unspecified upper limb, including shoulder (principal); D22.4 Melanocytic nevi of scalp and neck

== ENCOUNTER → 2024-06-09 | Outpatient (REF) | payer OTHER ==
[~2024-06-09] MED LIST changes: +CALTTAB6 PO; +CURC500C PO; +NIAC500T29 PO; +ONDA-282 PO; -ONDA4TAB6 PO; +QUER500C PO
[2024-06-09 13:24] LABS: BASO % 0.4 % (0.0-1.0); EOS # 0.1 10^3/uL (0.0-0.5); EOS % 1.8 % (0.0-3.0); HEMATOCRIT 39.8 % (36.0-47.0); HEMOGLOBIN 13.4 g/dl (12.0-15.5); LYMPH # 1.2 10^3/uL (1.5-5.0); LYMPH % 25.7 % (24.0-44.0); MEAN CORPUSCULAR HEMOGLOBIN 31.5 pg (27.0-33.0); MEAN CORPUSCULAR HGB CONC 33.7 g/dl (32.0-36.5); MEAN CORPUSCULAR VOLUME 93.6 fl (80.0-96.0); MONO # 0.3 10^3/uL (0.0-0.8); MONO % 7.5 % (2.0-8.0); NEUTROPHILS # 2.9 10^3/uL (1.5-8.5); NEUTROPHILS % 64.4 % (36.0-66.0); PLATELET COUNT, AUTOMATED 167 10^3/uL (150-450); RED BLOOD COUNT 4.25 10^6/uL (4.00-5.40); WHITE BLOOD COUNT 4.6 10^3/uL (4.0-10.0)
[2024-06-09 13:32] LABS: ERYTHROCYTE SEDIMENTATION RATE 7 mm/hr (0-30)
[2024-06-09 13:55] LABS: ALBUMIN 3.6 G/DL (3.2-5.2); ALKALINE PHOSPHATASE 73 U/L (46-116); ALT/SGPT 18 U/L (7.0-40); AST/SGOT 11 U/L (<34); BILIRUBIN,DIRECT < 0.1 MG/DL (<0.4); BILIRUBIN,TOTAL 0.4 MG/DL (0.3-1.2); BLOOD UREA NITROGEN 12 MG/DL (9-23); CALCIUM LEVEL 9.2 MG/DL (8.3-10.6); CARBON DIOXIDE LEVEL 30 MMOL/L (20-31); CHLORIDE LEVEL 107 MMOL/L (98-107); CREATININE FOR GFR 0.81 MG/DL (0.55-1.30); GLOMERULAR FILTRATION RATE > 60.0 (>45); GLUCOSE, FASTING 107 MG/DL (74-106); IRON (FE) 80 UG/DL (50-170); PERCENT SATURATION 30.4 % (13.2-45.0); POTASSIUM SERUM 4.4 MMOL/L (3.5-5.1); SODIUM LEVEL 141 MMOL/L (136-145); TOTAL IRON BINDING CAPACITY 263 UG/DL (250-425); TOTAL PROTEIN 6.3 G/DL (5.7-8.2)
[2024-06-09 13:57] LABS: VITAMIN B12 LEVEL 631 PG/ML (211-911)
[2024-06-09 13:59] LABS: FERRITIN 72.5 NG/ML (7.3-270.7); TOTAL 25(OH) VITAMIN D 117.8 NG/ML (20.0-100.0)
== END ==
LOC: M LAB REF 13:06
PROVIDERS: ATTEND Physician Assistant
DX: K50.10 Crohn's disease of large intestine without complications (principal); K21.9 Gastro-esophageal reflux disease without esophagitis; R13.10 Dysphagia, unspecified; K22.2 Esophageal obstruction

== ENCOUNTER → 2024-06-14 | Outpatient (REF) | payer OTHER | LOC: M SFHCDERM 17:12 | PROVIDERS: ATTEND Nurse Practitioner Family | DX: Q85.01 Neurofibromatosis, type 1 (principal) ==

== ENCOUNTER → 2024-06-22 | Outpatient (CLI) | payer OTHER ==
[~2024-06-22] MED LIST changes: +PROHANCE 279.3MG/ML 15ML VIAL ONE
== END ==
LOC: M PLAIMG 08:50
PROVIDERS: ATTEND Internal Medicine Hematology & Oncology
DX: C50.412 Malignant neoplasm of upper-outer quadrant of left female breast (principal); C50.411 Malignant neoplasm of upper-outer quadrant of right female breast
CPT/HCPCS: 74183; A9576

== ENCOUNTER → 2024-11-23 | Outpatient (CLI) | payer OTHER ==
[~2024-11-23] MED LIST changes: -PROHANCE 279.3MG/ML 15ML VIAL ONE
== END ==
LOC: M RAD 10:36
PROVIDERS: ATTEND Internal Medicine Medical Oncology
DX: C50.919 Malignant neoplasm of unspecified site of unspecified female breast (principal); M54.9 Dorsalgia, unspecified; M79.601 Pain in right arm
CPT/HCPCS: 78306; A9503

== ENCOUNTER → 2024-12-16 | Outpatient (CLI) | payer OTHER ==
[~2024-12-16] MED LIST changes: +ISOVUE-370 76% 100ML VIAL ONE
== END ==
LOC: M PLAIMG 11:51
PROVIDERS: ATTEND Internal Medicine Medical Oncology
DX: C50.919 Malignant neoplasm of unspecified site of unspecified female breast (principal); R91.1 Solitary pulmonary nodule; K76.0 Fatty (change of) liver, not elsewhere classified; K57.30 Diverticulosis of large intestine without perforation or abscess without bleeding; K57.32 Diverticulitis of large intestine without perforation or abscess without bleeding
CPT/HCPCS: 71260; 74177; Q9967

== ENCOUNTER → 2025-01-11 | Outpatient (CLI) | payer OTHER ==
[~2025-01-11] MED LIST changes: -ISOVUE-370 76% 100ML VIAL ONE
== END ==
LOC: M PLARAD 13:16
PROVIDERS: ATTEND Internal Medicine Medical Oncology
DX: C50.411 Malignant neoplasm of upper-outer quadrant of right female breast (principal); Z90.13 Acquired absence of bilateral breasts and nipples; R91.1 Solitary pulmonary nodule
CPT/HCPCS: 78815; A9552

== ENCOUNTER → 2025-01-13 | Outpatient (CLI) | payer OTHER | LOC: M CARPUL 10:46 | PROVIDERS: ATTEND Internal Medicine Medical Oncology | DX: C50.919 Malignant neoplasm of unspecified site of unspecified female breast (principal) ==

== ENCOUNTER → 2025-01-14 | Outpatient (CLI) | payer OTHER | LOC: M RAD 15:09 | PROVIDERS: ATTEND Internal Medicine Medical Oncology | DX: E07.9 Disorder of thyroid, unspecified (principal) ==

== ENCOUNTER → 2025-01-19 | Outpatient (CLI) | payer OTHER ==
[~2025-01-19] MED LIST changes: +LIDOCAINE 1% MDV 20ML VIAL As Ordered ONE
[2025-01-19 08:16] VITALS: TEMP 98.1
[2025-01-19 11:40] VITALS: BP 125/60; O2SAT 99
== END ==
LOC: M IRPRO 07:56
PROVIDERS: ATTEND Internal Medicine Medical Oncology
DX: R91.1 Solitary pulmonary nodule (principal); C50.919 Malignant neoplasm of unspecified site of unspecified female breast

== ENCOUNTER → 2025-02-24 | Outpatient (CLI) | payer OTHER ==
[~2025-02-24] MED LIST changes: -LIDOCAINE 1% MDV 20ML VIAL As Ordered ONE
== END ==
LOC: M WHC 07:24
PROVIDERS: ATTEND Internal Medicine Medical Oncology
DX: M79.622 Pain in left upper arm (principal); Z98.890 Other specified postprocedural states

== ENCOUNTER 2025-05-06 12:40 | Emergency (ER) | payer OTHER ==
[~2025-05-06] VITALS: Ht 162.6 cm; Wt 79.3 kg
[~2025-05-06 12:40] MED LIST changes: +PROC10TA5 PO; +TALA1CAP PO
[2025-05-06 13:21] LABS: BASO # 0.0 10^3/uL (0.0-0.2); BASO % 0.4 % (0.0-1.0); EOS # 0.1 10^3/uL (0.0-0.5); EOS % 1.4 % (0.0-3.0); LYMPH # 2.1 10^3/uL (1.5-5.0); LYMPH % 29.4 % (24.0-44.0); MONO # 0.6 10^3/uL (0.0-0.8); MONO % 7.9 % (2.0-8.0); NEUTROPHILS # 4.2 10^3/uL (1.5-8.5); NEUTROPHILS % 60.6 % (36.0-66.0); PLATELET COUNT, AUTOMATED 166 10^3/uL (150-450)
[2025-05-06] MEDS ORDERED: LMEF1TAB PO (13:24)
[2025-05-06] MEDS ORDERED: MILK175C6 PO (13:24)
[2025-05-06] MEDS ORDERED: [UNRECOGNIZED DRUG - CODE] IV (13:24)
[2025-05-06] MEDS ORDERED: VITA-32 PO (13:24)
[2025-05-06] MEDS ORDERED: OMEP10CASR PO (13:24)
[2025-05-06] MEDS ORDERED: MESA800T8 PO (13:24)
[2025-05-06 13:58] LABS: ALT/SGPT 31 U/L (7.0-40); AST/SGOT 28 U/L (<34); CALCIUM LEVEL 9.8 MG/DL (8.3-10.6); CARBON DIOXIDE LEVEL 28 MMOL/L (20-31); CHLORIDE LEVEL 103 MMOL/L (98-107); CK-MB VALUE MASS 2.0 NG/ML (<3.6); CREATININE FOR GFR 0.87 MG/DL (0.55-1.30); GLOMERULAR FILTRATION RATE 74.4 (>45); POTASSIUM SERUM 4.2 MMOL/L (3.5-5.1); SODIUM LEVEL 143 MMOL/L (136-145)
[2025-05-06] MEDS ORDERED: ISOVUE-370 76% 100 ML VIAL As Ordered ONE (13:59)
[2025-05-06 14:00] LABS: FREE T4 1.26 NG/DL (0.89-1.76)
[2025-05-06 14:04] LABS: CPK CREATINE PHOSPHOKINASE 169 U/L (34-145); MB/CK RELATIVE INDEX 1.18 (< OR =4)
[2025-05-06 14:43] LABS: CK-MB VALUE MASS 2.7 NG/ML (<3.6)
[2025-05-06 14:44] LABS: CPK CREATINE PHOSPHOKINASE 147 U/L (34-145); MB/CK RELATIVE INDEX 1.83 (< OR =4)
[2025-05-06] MEDS ORDERED: CARA1TAB6 PO (15:11)
[2025-05-06 15:24] VITALS: BP 142/65; TEMP 97.5; O2SAT 96
== END 2025-05-06 15:34 | disposition home or self-care (01) ==
LOC: M ED 12:40 → MERGE 12:40 → M ED 15:34
DX: R07.9 Chest pain, unspecified (principal); R00.1 Bradycardia, unspecified; F10.10 Alcohol abuse, uncomplicated; Z88.2 Allergy status to sulfonamides; Z79.899 Other long term (current) drug therapy
CPT/HCPCS: 36415; 71045; 71275; 80047; 80048; 80076; 82550; 82553; 83690; 84439; 84443; 84484; 85025; 85730; 93005; 93041; 94760; 99285; Q9967

== ENCOUNTER → 2025-05-12 | Outpatient (CLI) | payer OTHER ==
[~2025-05-12] MED LIST changes: +CARA1TAB6 PO; +LMEF1TAB PO; +MILK175C6 PO; +OMEP10CASR PO; +PROHANCE 279.3MG/ML 15ML VIAL ONE; +VITA-32 PO; +[UNRECOGNIZED DRUG - CODE] IV
== END ==
LOC: M PLAIMG 13:49
PROVIDERS: ATTEND Internal Medicine Hematology & Oncology
DX: C50.911 Malignant neoplasm of unspecified site of right female breast (principal); C50.912 Malignant neoplasm of unspecified site of left female breast; J32.8 Other chronic sinusitis; H70.12 Chronic mastoiditis, left ear; J34.2 Deviated nasal septum

== ENCOUNTER → 2025-05-25 | Outpatient (CLI) | payer OTHER ==
[~2025-05-25] MED LIST changes: +BERB500C PO; +ESCITALOPRAM; +FLAX1CAP5 PO; +MERC20OR3 PO; -MERC50TA2 PO; -PROHANCE 279.3MG/ML 15ML VIAL ONE
== END ==
LOC: M ONCR 07:51
PROVIDERS: ATTEND General Practice
DX: C78.02 Secondary malignant neoplasm of left lung (principal); C50.412 Malignant neoplasm of upper-outer quadrant of left female breast; C50.411 Malignant neoplasm of upper-outer quadrant of right female breast; Z17.1 Estrogen receptor negative status [ER-]; Z17.22 Progesterone receptor negative status; Z17.32 Human epidermal growth factor receptor 2 negative status; Z90.710 Acquired absence of both cervix and uterus; Z90.722 Acquired absence of ovaries, bilateral; Z90.79 Acquired absence of other genital organ(s); Z90.13 Acquired absence of bilateral breasts and nipples; Z80.3 Family history of malignant neoplasm of breast; Z88.1 Allergy status to other antibiotic agents; Z88.2 Allergy status to sulfonamides; Z79.899 Other long term (current) drug therapy

== ENCOUNTER 2025-06-13 15:49 | Outpatient (RCR) | payer OTHER ==
[~2025-06-13 15:49] MED LIST changes: -MERC20OR3 PO; +MERC50TA2 PO
[2025-06-22] MEDS ORDERED: TALA1CAP PO (14:10)
== END 2025-06-19 ==
LOC: M ONCR 15:49
PROVIDERS: ATTEND General Practice
DX: Z51.0 Encounter for antineoplastic radiation therapy (principal); C50.412 Malignant neoplasm of upper-outer quadrant of left female breast

== ENCOUNTER 2025-07-11 08:43 | Emergency (ER) | payer OTHER ==
[~2025-07-11] VITALS: Ht 162.6 cm; Wt 80.3 kg
[~2025-07-11 08:43] MED LIST changes: -[UNRECOGNIZED DRUG - CODE] IV; +[UNRECOGNIZED DRUG - CODE] SL
[2025-07-11 09:30] LABS: BASO # 0.0 10^3/uL (0.0-0.2); BASO % 0.3 % (0.0-1.0); EOS # 0.0 10^3/uL (0.0-0.5); EOS % 0.7 % (0.0-3.0); LYMPH # 0.8 10^3/uL (1.5-5.0); LYMPH % 26.0 % (24.0-44.0); MONO # 0.4 10^3/uL (0.0-0.8); MONO % 14.2 % (2.0-8.0); NEUTROPHILS # 1.7 10^3/uL (1.5-8.5); NEUTROPHILS % 58.1 % (36.0-66.0); PLATELET COUNT, AUTOMATED 199 10^3/uL (150-450)
[2025-07-11 09:44] LABS: INR 0.91
[2025-07-11 09:54] LABS: ALT/SGPT 20 U/L (7.0-40); AST/SGOT 16 U/L (<34); CALCIUM LEVEL 8.6 MG/DL (8.3-10.6); CARBON DIOXIDE LEVEL 28 MMOL/L (20-31); CHLORIDE LEVEL 105 MMOL/L (98-107); CK-MB VALUE MASS < 1.0 NG/ML (<3.6); CPK CREATINE PHOSPHOKINASE 91 U/L (34-145); CREATININE FOR GFR 0.73 MG/DL (0.55-1.30); GLOMERULAR FILTRATION RATE > 90.0 (>45); POTASSIUM SERUM 4.2 MMOL/L (3.5-5.1); SODIUM LEVEL 142 MMOL/L (136-145)
[2025-07-11] MEDS ORDERED: ISOVUE-370 76% 100 ML VIAL As Ordered ONE (10:29)
[2025-07-11 11:20] LABS: CK-MB VALUE MASS < 1.0 NG/ML (<3.6)
[2025-07-11 11:21] LABS: CPK CREATINE PHOSPHOKINASE 84 U/L (34-145)
[2025-07-11] MEDS ORDERED: ALPR0.25 PO (13:35)
[2025-07-11] MEDS ORDERED: HOME MED LIST COMPLETE! XX SCH (13:35)
[2025-07-11 15:21] VITALS: BP 140/62; TEMP 97.4; O2SAT 99
== END 2025-07-11 15:27 | disposition home or self-care (01) ==
LOC: M ED 08:43
DX: R07.9 Chest pain, unspecified (principal); D59.11 Warm autoimmune hemolytic anemia; Z88.2 Allergy status to sulfonamides; Z79.899 Other long term (current) drug therapy
CPT/HCPCS: 36415; 71045; 71275; 80048; 80076; 82550; 82553; 83690; 84443; 84484; 85025; 85610; 85730; 86850; 86900; 86901; 87486; 87581; 87633; 87798; 93005; 93041; 94760; 99285; Q9967

== ENCOUNTER → 2025-07-20 | Outpatient (CLI) | payer OTHER ==
[~2025-07-20] MED LIST changes: +ALPR0.25 PO; +ISOVUE-370 76% 100 ML VIAL As Ordered ONE
== END ==
LOC: M RAD 14:32
PROVIDERS: ATTEND Internal Medicine Medical Oncology
DX: C50.919 Malignant neoplasm of unspecified site of unspecified female breast (principal)
CPT/HCPCS: 71260; 74177; Q9967

== ENCOUNTER → 2025-09-06 | Outpatient (CLI) | payer OTHER ==
[~2025-09-06] MED LIST changes: -ISOVUE-370 76% 100 ML VIAL As Ordered ONE; +PROHANCE 279.3MG/ML 15ML VIAL ONE; +[UNRECOGNIZED DRUG - CODE] PO
== END ==
LOC: M PLAIMG 08:06
DX: N61.1 Abscess of the breast and nipple (principal); R91.8 Other nonspecific abnormal finding of lung field
CPT/HCPCS: 77049; A9579

== ENCOUNTER → 2025-09-12 | Outpatient (CLI) | payer OTHER ==
[~2025-09-12] MED LIST changes: +AZIT-12 PO; +PRED50TA57 PO; -PROHANCE 279.3MG/ML 15ML VIAL ONE
== END ==
LOC: M PLARAD 07:35
PROVIDERS: ATTEND General Practice
DX: C78.02 Secondary malignant neoplasm of left lung (principal)
CPT/HCPCS: 78815; A9552

== ENCOUNTER → 2025-09-13 | Outpatient (CLI) | payer OTHER ==
[~2025-09-13] MED LIST changes: +FLUC-1 PO; +LEVO1TAB40 PO
== END ==
LOC: M ONCR 15:13
PROVIDERS: ATTEND General Practice
DX: C78.02 Secondary malignant neoplasm of left lung (principal); Z85.3 Personal history of malignant neoplasm of breast; R91.8 Other nonspecific abnormal finding of lung field; Z15.01 Genetic susceptibility to malignant neoplasm of breast; Z71.2 Person consulting for explanation of examination or test findings; Z79.69 Long term (current) use of other immunomodulators and immunosuppressants; Z79.811 Long term (current) use of aromatase inhibitors; Z79.899 Other long term (current) drug therapy; Z87.891 Personal history of nicotine dependence; Z88.1 Allergy status to other antibiotic agents; Z88.2 Allergy status to sulfonamides; Z92.3 Personal history of irradiation

== ENCOUNTER → 2025-10-11 | Outpatient (CLI) | payer OTHER ==
[~2025-10-11] MED LIST changes: +ISOVUE-370 76% 100 ML VIAL As Ordered ONE
== END ==
LOC: M RAD 13:19
PROVIDERS: ATTEND General Practice
DX: C78.02 Secondary malignant neoplasm of left lung (principal); E04.1 Nontoxic single thyroid nodule; K76.0 Fatty (change of) liver, not elsewhere classified; R91.8 Other nonspecific abnormal finding of lung field
CPT/HCPCS: 71260; Q9967

== ENCOUNTER → 2025-10-18 | Outpatient (CLI) | payer OTHER ==
[~2025-10-18] MED LIST changes: -ISOVUE-370 76% 100 ML VIAL As Ordered ONE; +PRED10TA2 PO
== END ==
LOC: M ONCR 14:39
PROVIDERS: ATTEND General Practice
DX: C78.02 Secondary malignant neoplasm of left lung (principal); C50.412 Malignant neoplasm of upper-outer quadrant of left female breast; C50.411 Malignant neoplasm of upper-outer quadrant of right female breast; R06.02 Shortness of breath; R05.8 Other specified cough; R07.89 Other chest pain; M89.9 Disorder of bone, unspecified; Z71.2 Person consulting for explanation of examination or test findings; Z92.3 Personal history of irradiation; Z88.1 Allergy status to other antibiotic agents; Z88.2 Allergy status to sulfonamides; Z79.811 Long term (current) use of aromatase inhibitors; Z79.899 Other long term (current) drug therapy